=== PATIENT | male | born 1960 | race Caucasian/White ===

== ENCOUNTER → 2016-06-22 | Outpatient (CLI) | payer OTHER ==
--- NOTE | 2016-06-22 12:06 | FL ---
MODIFIED SWALLOW / DEGLUTITION STUDY DATE OF EXAM: 06/22/2016 11:56 AM CLINICAL HISTORY: 56-year-old male Dysphagia. Difficulty swallowing. Exam 1 year ago at the [facility] showed an abnormality with the epiglottis. TECHNIQUE: Deglutition study is performed utilizing thin liquid barium, honey and nectar thick liqui d barium, barium thick applesauce, and barium coated cracker. COMPARISON: None. FINDINGS: The oral and pharyngeal phases show satisfactory initiation and propagation with all modalities teste d. Normal mastication is seen with solid modalities tested. There is no evidence of penetration or aspiration with any modality tested. Incidentally, there appears to be thickening of the epiglottis but with appropriate inversion. Single episode of vallecular residual with solid consistency is noted which clears spontaneously after repeat swallow. IMPRESSION: 1. Thickened appearance to the epiglottis. Recommend ENT consultation for direct visualization. 2. No penetration or aspiration. Single episode of vallecular residual with solid consistencies. 3. Please refer to speech therapist notes for further details if necessary.
== END | disposition home or self-care (01) ==
LOC: RADFLMAIN 11:27
PROVIDERS: ATTEND Family Medicine
DX: J38.7 Other diseases of larynx (principal)
CPT/HCPCS: 74230

== ENCOUNTER 2016-07-21 13:07 | Observation (INO) | payer OTHER ==
[2016-07-21] MEDS ORDERED: ASPIRIN 81 MG CHEW PO STA (13:38)
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
[2016-07-21 14:18] LABS: Basophils # (A) 0.1 k/uL (0-0.2); Basophils % (A) 1 %; CHCM 33.8; Eosinophils # (A) 0.2 k/uL (0-0.7); Eosinophils % (A) 4 %; HCT 37.2 % (39.0-53.0); HDW 3.34; HGB 12.6 gm/dL (13.0-17.5); Luc # (Auto) 0.15; Luc % (Auto) 3; Lymphocytes # (A) 1.4 k/uL (1.0-4.8); Lymphocytes % (A) 25 %; MCH 29.3 pg (25.0-35.0); MCHC 33.9 g/dL (31.0-37.0); MCV 86.2 fL (80.0-100.0); Mean Platelet Volume 6.9; Monocytes # (A) 0.4 k/uL (0-1.0); Monocytes % (A) 8 %; Neutrophils # (A) 3.3 k/uL (1.3-7.7); Neutrophils % (A) 60 %; RBC 4.31 m/uL (4.30-5.90); RDW 15.1 % (11.5-15.5); WBC 5.4 k/uL (3.8-10.6); WBC (Perox) 6.41
[2016-07-21 14:26] LABS: Anion Gap 11 mmol/L; Blood Urea Nitrogen 22 mg/dL (9-20); Calcium 9.8 mg/dL (8.4-10.2); Carbon Dioxide 24 mmol/L (22-30); Chloride 109 mmol/L (98-107); Glucose 151 mg/dL (74-99); Non-African American GFR(MDRD) >60 (>60 ml/min/1.73 sqM); Potassium 4.4 mmol/L (3.5-5.1); Sodium 144 mmol/L (137-145)
[2016-07-21 14:35] LABS: INR 1.1 (<1.1)
[2016-07-21 14:36] LABS: Partial Thromboplastin Time 23.6 sec (22.0-30.0); Prothrombin Time 11.4 sec (9.0-12.0)
[2016-07-21] MEDS ORDERED: NALOXONE 0.4 MG/ML 1 ML VIAL IV PRN (16:08)
[2016-07-21] MEDS ORDERED: MORPHINE SULFATE 4 MG/ML SYRINGE IVP STA (16:10)
[2016-07-21 17:08] LABS: Glucose,Whole Blood 125 mg/dL (75-99)
[2016-07-21 18:02] VITALS: BMI 33.1
[2016-07-21] MEDS ORDERED: INSULIN ASPART 2 UNIT SQ PRN (18:24)
[2016-07-21] MEDS ORDERED: WARFARIN 10 MG TAB PO SCH (18:30)
[2016-07-21] MEDS: DOFETILIDE 500 MCG CAP PO SCH (19:47)
[2016-07-21] MEDS: hydrALAZINE HCL 25 MG TAB PO SCH (19:47)
[2016-07-21] MEDS: PANTOPRAZOLE 40 MG TABLET PO SCH (19:47)
[2016-07-21] MEDS: metFORMIN 500 MG TAB PO SCH (19:47)
[2016-07-21 19:53] LABS: Glucose,Whole Blood 214 mg/dL (75-99)
[2016-07-21] MEDS: INSULIN LISPRO (humaLOG) 300 UNIT/3 ML VIAL SQ SCH (19:54)
--- NOTE | 2016-07-21 20:01 | XR ---
EXAMINATION TYPE: XR chest 1V portable DATE OF EXAM: 07/21/2016 7:28 PM COMPARISON: 01/13/2016 HISTORY: Chest pain TECHNIQUE: Single frontal view of the chest is obtained. FINDINGS: There is no heart failure nor confluent pneumonic infiltrate. There are no hilar masses. C ostophrenic angles are clear. There are chest leads. IMPRESSION: No active cardiopulmonary disease. No change.
[2016-07-21] MEDS ORDERED: GABAPENTIN 100 MG CAP PO SCH (21:00)
[2016-07-21] MEDS ORDERED: METHOCARBAMOL 750 MG TAB PO SCH (21:00)
[2016-07-21] MEDS ORDERED: INSULIN GLARGINE 100 UNIT/ML 10 ML VIAL SQ SCH (21:00)
[2016-07-21] MEDS ORDERED: LATANOPROST 0.005% OPHTH DROPS 2.5 ML BTL BOTH EYES SCH (21:00)
[2016-07-22 01:26] LABS: Creatine Kinase 61 U/L (55-170)
[2016-07-22 01:39] LABS: Creatine Kinase MB 0.8 ng/mL (0.0-2.4); Troponin I <0.012 ng/mL (0.000-0.034)
[2016-07-22] MEDS: DOFETILIDE 500 MCG CAP PO SCH (05:55)
[2016-07-22] MEDS ORDERED: LEVOTHYROXINE 100 MCG TAB PO SCH (06:30)
[2016-07-22 07:12] LABS: Glucose,Whole Blood 178 mg/dL (75-99)
[2016-07-22] MEDS ORDERED: CARVEDILOL 12.5 MG TAB PO SCH (07:30)
[2016-07-22] MEDS ORDERED: glipiZIDE 10 MG TAB PO SCH (07:30)
[2016-07-22 07:58] LABS: Creatine Kinase 55 U/L (55-170)
[2016-07-22 08:09] LABS: Creatine Kinase MB 0.7 ng/mL (0.0-2.4); Troponin I <0.012 ng/mL (0.000-0.034)
[2016-07-22 08:59] VITALS: PULSE 61
[2016-07-22] MEDS ORDERED: DILTIAZEM CD 240 MG CAP.ER.24H PO SCH (09:00)
[2016-07-22] MEDS ORDERED: CLOPIDOGREL 75 MG TAB PO SCH (09:00)
[2016-07-22] MEDS ORDERED: LISINOPRIL 20 MG TAB PO SCH (09:00)
[2016-07-22] MEDS ORDERED: ATORVASTATIN 80 MG TAB PO SCH (09:00)
[2016-07-22] MEDS ORDERED: SPIRONOLACTONE 25 MG TAB PO SCH (09:00)
[2016-07-22] MEDS: PANTOPRAZOLE 40 MG TABLET PO SCH (09:40)
[2016-07-22] MEDS: metFORMIN 500 MG TAB PO SCH (09:41)
[2016-07-22] MEDS: hydrALAZINE HCL 25 MG TAB PO SCH (09:41)
[2016-07-22] MEDS: INSULIN LISPRO (humaLOG) 300 UNIT/3 ML VIAL SQ SCH ×4 (09:44→12:52)
--- NOTE | 2016-07-22 10:53 | CONS ---
DATE OF CONSULTATION: CHIEF COMPLAINT: Chest pain. HISTORY OF PRESENT ILLNESS: This is a 56-year-old gentleman with history of coronary artery disease, status post angioplasty of LAD, right coronary artery and circumflex coronary artery, the most recent one being in April 2015, history of permanent pacemaker placement, paroxysmal atrial fibrillation who presented to the hospital complaining of chest discomfort. Patient states that he moved quite a bit of furniture yesterday and then had vague sharp nonspecific chest discomfort. It was unassociated with diaphoresis. There was no definite radiation to neck, arm or back. There is no history of nausea, vomiting. At the time of my evaluation, he is pain free and hemodynamically stable. EKG shows paced rhythm and 2 sets of cardiac enzymes are negative. Past medical history is significant for coronary artery disease, status post multivessel angioplasty, paroxysmal atrial fibrillation, hypertension, dyslipidemia. Current medications include: 1. Lipitor 80 daily. 2. Coreg 12.5 b.i.d. 3. Plavix. 4. Cardizem CD. 5. Tikosyn. 6. Neurontin. 7. Glucotrol. 8. Apresoline. 9. Insulin. 10. Zestril. 11. Glucophage. 12. Narcan. 13. Aldactone. 14. Coumadin. ALLERGIC TO HYDROCHLOROTHIAZIDE, IMDUR, ADHESIVE TAPE AND SILVADENE. FAMILY HISTORY: Negative for premature coronary artery disease. SOCIAL HISTORY: Negative for smoking, ETOH abuse, or drug abuse. REVIEW OF SYSTEMS: HEENT: Unremarkable. CARDIAC: As described above. RESPIRATORY: Negative. GI: Negative. GENITOURINARY: Negative. Allergy/immunology: Negative. SKIN: Negative. MUSCULOSKELETAL: Negative. ENDOCRINE: Negative. Dermatology: Negative. CONSTITUTIONAL: Negative. Oncological: Negative. The rest of the system review is not relevant. On exam he is comfortable at rest. Vital signs are stable. There is no jugular venous distention. Chest exam reveals good air entry bilaterally. Heart exam reveals first and second heart sounds. No gallop. No murmur, no rub. ABDOMEN: Soft, nontender. Exam of the extremities did not reveal any edema. Peripheral pulses are felt. ASSESSMENT: 1. Chest pain, atypical, probably musculoskeletal. 2. Coronary artery disease, status post multivessel angioplasty. 3. Paroxysmal atrial fibrillation. 4. Hypertension. PLAN: Myocardial infarction is ruled out. Chest discomfort is atypical and probably noncardiac. The patient's INR is 1.1. It is unclear if he is compliant with his Coumadin. We will make sure that he gets 10 mg of Coumadin and optimize anticoagulation as outpatient. From cardiac standpoint, I am going to obtain a 2-D echo on him and hopefully he can be discharged home and outpatient follow-up arranged through my office.
[2016-07-22] MEDS ORDERED: CHOLECALCIFEROL 1,000 UNIT TAB PO SCH (12:00)
[2016-07-22 12:02] LABS: Glucose,Whole Blood 247 mg/dL (75-99)
[2016-07-22 12:33] VITALS: BP 152/71; RESP 18; TEMP 98.5
--- NOTE | 2016-07-22 13:31 | ECHOF ---
Referral Reason:chest pain MEASUREMENTS -------- HEIGHT: 195.6 cm WEIGHT: 126.6 kg BP: 136/75 IVSd: 1.6 cm (0.6 - 1.1) LVIDd: 4.1 cm (3.9 - 5.3) LVPWd: 1.2 cm (0.6 - 1.1) LVIDs: 2.7 cm LA Diam: 4.3 cm (2.7 - 3.8) RVIDd: 3.1 cm (< 3.3) LAESV Index (A-L): 49.01 ml/m Ao Diam: 3.8 cm (2.0 - 3.7) AV Cusp: 2.4 cm (1.5 - 2.6) EPSS: 0.1 cm MV E Krish: 1.19 m/s MV DecT: 237 ms MV A Krish: 0.81 m/s MV E/A Ratio: 1.47 AV maxP.89 mmHg AV meanP.64 mmHg RAP: 5.00 mmHg RVSP: 26.51 mmHg MV EF SLOPE: 111.92 mm/s (70 - 150) MV EXCURSION: 21.17 mm (> 18.000) FINDINGS -------- Sinus rhythm. This was a technically good study. The left ventricular size is normal. There is moderate concentric left ventricular hypertrophy. Overall left ventricular systolic function is normal with, an EF between 60 - 65 %. The right ventricle is normal in size and function. LA is severely dilated >40 ml/m2 The right atrium is normal in size. There is mild aortic valve sclerosis. Mild mitral annular calcification present. Mild mitral regurgitation is present. Mild tricuspid regurgitation present. Right ventricular systolic pressure is normal at < 35 mmHg. The pulmonic valve is normal. There is no pulmonic regurgitation present. The aortic root is dilated measuring 3.8cm. The inferior vena cava is mildly dilated. There is no pericardial effusion. CONCLUSIONS -------- 1. Sinus rhythm. 2. Mild mitral annular calcification present. 3. Mild mitral regurgitation is present. 4. Mild tricuspid regurgitation present. 5. Right ventricular systolic pressure is normal at < 35 mmHg. 6. The pulmonic valve is normal. 7. The aortic root is dilated measuring 3.8cm. 8. The inferior vena cava is mildly dilated. 9. There is no pericardial effusion. 10. This was a technically good study. 11. The left ventricular size is normal. 12. There is moderate concentric left ventricular hypertrophy. 13. Overall left ventricular systolic function is normal with, an EF between 60 - 65 %. 14. The right ventricle is normal in size and function. 15. LA is severely dilated >40 ml/m2 16. The right atrium is normal in size. 17. There is mild aortic valve sclerosis. [employer]ITE: Beatrice Youssef RDCS
[2016-07-22 13:56] LABS: Hemoglobin A1C 7.5 % (4.2-6.1)
--- NOTE | 2016-07-22 16:39 | HP ---
This dictation is both H&P and Discharge Summary. DATE OF ADMISSION: A 56-year-old with known history of coronary artery disease with stents to LAD and circumflex, came in with complaints of chest pressure-like sensation which appears to be nonexertional. Patient has a history of paroxysmal A. fib. Patient's chest pain is nonradiating in the midsternal area, constant, about 7/10 severe, lasted for a few hours, and not associated with diaphoresis. Was complaining of some lightheadedness. Patient denied any nausea. Not sure whether patient has shortness of breath or not. Patient's symptoms completely resolved, patient had an echocardiogram which did not show any wall motion abnormalities in EKG, did not show any significant abnormalities. Patient was cleared for discharge from Cardiology perspective, although etiology of his chest pain is not very clear for me and appears to be noncardiac. Home medications include: 1. Tikosyn that is dofetilide. 2. Methocarbamol. 3. Metformin. 4. Plavix. 5. Insulin aspart. 6. Latanoprost. 7. Coumadin. Patient's INR is only 1.1, in spite of, Coumadin. Not sure whether patient is complaint with his medications or not. 8. Glipizide. 9. Glargine. 10. Gabapentin. 11. Coreg. 12. Levothyroxine. 13. Lisinopril. 14. Hydralazine. 15. Omeprazole. 16. Spironolactone. 17. Diltiazem. 18. Cholecalciferol. 19. Insulin aspart. 20. Silver sulfadiazine. 21. Atorvastatin. 22. Nitroglycerin. ALLERGIES: Allergic to MUSHROOM, HYDROCHLOROTHIAZIDE, ISOSORBIDE MONONITRATE, ADHESIVE TAPE. REVIEW OF SYSTEMS: CONSTITUTIONAL: No fever, no malaise, no fatigue. HEENT: No recent visual problems or hearing problems. Denied any sore throat. CARDIOVASCULAR: As described in HPI. PULMONARY: No shortness of breath, no cough, no hemoptysis. GASTROINTESTINAL: No diarrhea, no nausea, no vomiting, no abdominal pain. Normoactive bowel sounds. NEUROLOGICAL: No headaches, no weakness, no numbness. HEMATOLOGICAL: Denies any bleeding or petechiae. GENITOURINARY: Denies any burning micturition, frequency, or urgency. MUSCULOSKELETAL/RHEUMATOLOGICAL: Denies any joint pain, swelling, or any muscle pain. ENDOCRINE: Denies any polyuria or polydipsia. The rest of the 14 point review of systems is negative. PAST MEDICAL HISTORY: Atrial fibrillation, coronary artery disease, diabetes mellitus, DVT in the past, hyperlipidemia, hypertension, osteoarthritis. Patient uses BiPAP at home, thyroid cancer, thyroidectomy in the past, cardiac catheterization and stent placement in the past, had a permanent pacemaker. Father had severe TIA, diabetes mellitus, mother had severe TIA, diabetes mellitus as well. PHYSICAL EXAM: Temperature 98.4, pulse of 61, respiratory rate of 18, blood pressure 152/70, saturating at 95% on room air. GENERAL: The patient is alert and oriented x3, not in any acute distress. Well developed, well nourished. HEENT: Pupils are round and equally reacting to light. EOMI. No scleral icterus. No conjunctival pallor. Normocephalic, atraumatic. No pharyngeal erythema. No thyromegaly. CARDIOVASCULAR: S1 and S2 present. No murmurs, rubs, or gallops. PULMONARY: Chest is clear to auscultation, no wheezing or crackles. ABDOMEN: Soft, nontender, nondistended, normoactive bowel sounds. No palpable organomegaly. MUSCULOSKELETAL: No joint swelling or deformity. EXTREMITIES: No cyanosis, clubbing, or pedal edema. NEUROLOGICAL: Gross neurological examination did not reveal any focal deficits. SKIN: No rashes. LABORATORY DATA: CBC, CMP essentially within normal limits notes. Hemoglobin A1c is 7.5, and INR as mentioned above. D-dimer is negative. ASSESSMENT AND PLAN: 1. Chest pain; unsure of the exact etiology. Cardiology evaluated the patient, ruled out acute coronary artery syndrome and unstable angina. Patient is cleared for discharge from Cardiology perspective, can be musculoskeletal. 2. Coronary artery disease, status post multivessel angioplasty in the past. 3. Paroxysmal atrial fibrillation. 4. Hypertension. Patient is subtherapeutic on Coumadin, unsure whether patient is compliant with his diet or not. Patient given 10 mg of Coumadin. Dietary counseling was provided and patient needs repeat INR in 3 to 5 days in outpatient clinic. 5. Morbid obesity. Counseling was provided. 6. Type 2 diabetes mellitus. 7. Hypertension. 8. Osteoarthritis. For above mentioned ( ), patient will continue his home medications. Patient will follow with Dr. Thomas Eckert in 3 to 5 days and patient will follow with Dr. Norm Hill in the clinic as scheduled. Activity as tolerated. Cardiac and diabetic 1800 calorie.
[2016-07-22] MEDS ORDERED: WARFARIN 5 MG TAB PO SCH (18:00)
--- NOTE | 2016-07-23 11:20 | XR ---
EXAMINATION TYPE: XR chest 1V portable DATE OF EXAM: 07/21/2016 7:30 PM COMPARISON: 07/21/2016 HISTORY: Pain TECHNIQUE: Single frontal view of the chest is obtained. FINDINGS: There is no focal air space opacity, pleural effusion, or pneumothorax seen. The cardiac silhouette size is within normal limits. The osseous structures are intact. The heart is enlarged a nd there is a cardiac device. Hyperinflation suggests COPD. IMPRESSION: No acute process.
== END 2016-07-22 15:10 | disposition home or self-care (01) ==
LOC: EC 13:07 → 3OBS 16:08
PROVIDERS: ADMIT Internal Medicine; ATTEND Internal Medicine
DX: R07.89 Other chest pain (principal); I10 Essential (primary) hypertension; I48.0 Paroxysmal atrial fibrillation; E11.9 Type 2 diabetes mellitus without complications; E66.01 Morbid (severe) obesity due to excess calories; M19.90 Unspecified osteoarthritis, unspecified site; E78.5 Hyperlipidemia, unspecified; G47.30 Sleep apnea, unspecified; H40.9 Unspecified glaucoma; I25.10 Atherosclerotic heart disease of native coronary artery without angina pectoris; Z79.899 Other long term (current) drug therapy; Z79.84 Long term (current) use of oral hypoglycemic drugs; Z79.4 Long term (current) use of insulin; Z79.02 Long term (current) use of antithrombotics/antiplatelets; Z79.01 Long term (current) use of anticoagulants; Z88.8 Allergy status to other drugs, medicaments and biological substances; Z91.018 Allergy to other foods; Z91.048 Other nonmedicinal substance allergy status; Z86.718 Personal history of other venous thrombosis and embolism; Z99.89 Dependence on other enabling machines and devices; Z85.850 Personal history of malignant neoplasm of thyroid; Z95.0 Presence of cardiac pacemaker; Z95.5 Presence of coronary angioplasty implant and graft; Z68.33 Body mass index [BMI] 33.0-33.9, adult
CPT/HCPCS: 96374; 99285; 36415; 93005; 93306; 85379; 80048; 83036; 82550; 82553; 83735; 84484 ×2; 85025; 85610; 85730; 71010; G0378 ×2; J2270

== ENCOUNTER → 2017-12-26 | Outpatient (CLI) | payer OTHER ==
--- NOTE | 2017-12-26 11:16 | ECHOF ---
Referral Reason:I35.1 nonrheumatic aortic valve sufficency MEASUREMENTS -------- HEIGHT: 188.0 cm WEIGHT: 120.2 kg BP: IVSd: 1.5 cm (0.6 - 1.1) LVIDd: 4.6 cm (3.9 - 5.3) LVPWd: 1.4 cm (0.6 - 1.1) IVSs: 2.1 cm LVIDs: 3.5 cm LVPWs: 1.4 cm LA Diam: 4.4 cm (2.7 - 3.8) LAESV Index (A-L): 49.12 ml/m Ao Diam: 3.7 cm (2.0 - 3.7) AV Cusp: 2.3 cm (1.5 - 2.6) LA Diam: 4.5 cm (2.7 - 3.8) MV EXCURSION: 22.213 mm (> 18.000) MV EF SLOPE: 96 mm/s (70 - 150) EPSS: 0.3 cm MV E Krish: 1.09 m/s MV DecT: 218 ms MV A Krish: 0.68 m/s MV E/A Ratio: 1.59 RAP: 5.00 mmHg RVSP: 23.05 mmHg FINDINGS -------- Sinus rhythm. This was a technically adequate study. The left ventricular size is normal. There is moderate concentric left ventricular hypertrophy. O verall left ventricular systolic function is low-normal with, an EF between 50 - 55 %. The right ventricle is normal in size. The left atrium is moderately dilated. LA is severely dilated >40 ml/m2 The right atrial size is normal. There is mild aortic valve sclerosis. There is no evidence of aortic regurgitation. Mild mitral annular calcification present. Mild mitral regurgitation is present. Mild tricuspid regurgitation present. There is no evidence of pulmonary hypertension. The right v entricular systolic pressure, as measured by Doppler, is 23.05mmHg. There is no pulmonic regurgitation present. The aortic root size is normal. There is no pericardial effusion. CONCLUSIONS -------- 1. The left ventricular size is normal. 2. There is moderate concentric left ventricular hypertrophy. 3. Overall left ventricular systolic function is low-normal with, an EF between 50 - 55 %. 4. The right ventricle is normal in size. 5. The left atrium is moderately dilated. 6. LA is severely dilated >40 ml/m2 7. The right atrial size is normal. 8. There is mild aortic valve sclerosis. 9. Mild mitral annular calcification present. 10. Mild mitral regurgitation is present. 11. Mild tricuspid regurgitation present. 12. There is no evidence of pulmonary hypertension. 13. The right ventricular systolic pressure, as measured by Doppler, is 23.05mmHg. 14. There is no pulmonic regurgitation present. 15. The aortic root size is normal. 16. There is no pericardial effusion. DISPLAY MANAGER: Bibiana Montes De Oca RDCS
== END | disposition home or self-care (01) ==
LOC: RADECHMAIN 08:39
PROVIDERS: ATTEND Internal Medicine Gastroenterology
DX: I08.3 Combined rheumatic disorders of mitral, aortic and tricuspid valves (principal)
CPT/HCPCS: 93306

== ENCOUNTER 2017-12-27 01:49 | Inpatient (IN) | payer MEDICARE, OTHER ==
[2017-12-27] MEDS ORDERED: MORPHINE SULFATE 4 MG/ML SYRINGE ONE ×2 (03:03)
[2017-12-27 06:02] LABS: Creatine Kinase 63 U/L (55-170); Troponin I <0.012 ng/mL (0.000-0.034)
[2017-12-27 06:12] LABS: ALT 39 U/L (21-72); AST 20 U/L (17-59); Albumin 3.8 g/dL (3.5-5.0); Alkaline Phosphatase 84 U/L (38-126); Anion Gap 8 mmol/L; Blood Urea Nitrogen 23 mg/dL (9-20); Carbon Dioxide 22 mmol/L (22-30); Chloride 112 mmol/L (98-107); Glucose 205 mg/dL (74-99); Potassium 4.9 mmol/L (3.5-5.1); Sodium 142 mmol/L (137-145); Total Bilirubin 0.3 mg/dL (0.2-1.3); Total Protein 6.1 g/dL (6.3-8.2)
[2017-12-27 06:17] LABS: Basophils # (A) 0.1 k/uL (0-0.2); Basophils % (A) 1 %; Eosinophils # (A) 0.3 k/uL (0-0.7); Eosinophils % (A) 4 %; HCT 41.6 % (39.0-53.0); HGB 13.7 gm/dL (13.0-17.5); Lymphocytes # (A) 1.3 k/uL (1.0-4.8); Lymphocytes % (A) 18 %; MCH 27.5 pg (25.0-35.0); MCV 83.4 fL (80.0-100.0); Mean Platelet Volume 7.5; Monocytes # (A) 0.5 k/uL (0-1.0); Monocytes % (A) 6 %; Neutrophils % (A) 69 %; Platelet Count 274 k/uL (150-450); RBC 4.99 m/uL (4.30-5.90); WBC 7.3 k/uL (3.8-10.6)
[2017-12-27] MEDS ORDERED: MORPHINE SULFATE 4 MG/ML SYRINGE IV PRN (06:59)
[2017-12-27] MEDS ORDERED: ACETAMINOPHEN TAB 325 MG TAB PO PRN ×2 (07:00→07:01)
[2017-12-27] MEDS ORDERED: ALPRAZolam 0.25 MG TAB PO PRN ×2 (07:01)
[2017-12-27] MEDS ORDERED: ZOLPIDEM 5 MG TAB PO PRN ×3 (07:01→13:34)
[2017-12-27] MEDS ORDERED: NITROGLYCERIN SL TABS 0.4 MG TAB SUBLINGUAL PRN (07:01)
[2017-12-27] MEDS ORDERED: MORPHINE SULFATE 2 MG/ML SYRINGE IVP PRN (07:01)
[2017-12-27] MEDS ORDERED: CARVEDILOL 12.5 MG TAB PO SCH (08:00)
[2017-12-27] MEDS: ATORVASTATIN 80 MG TAB PO SCH (08:48)
[2017-12-27] MEDS: LISINOPRIL 20 MG TAB PO SCH (08:48)
[2017-12-27] MEDS ORDERED: hydrALAZINE HCL 25 MG TAB PO SCH (09:00)
[2017-12-27] MEDS ORDERED: ASPIRIN 325 MG TAB PO SCH (09:00)
[2017-12-27] MEDS ORDERED: LISINOPRIL 20 MG TAB PO SCH (09:00)
[2017-12-27] MEDS: DILTIAZEM CD 240 MG CAP.ER.24H PO SCH (09:32)
[2017-12-27] MEDS ORDERED: HEPARIN SODIUM,PORCINE 5,000 UNIT/ML 1 ML VIAL IV ONE (09:43)
[2017-12-27] MEDS ORDERED: HEPARIN SODIUM,PORCINE 5,000 UNIT/ML 1 ML VIAL IV PRN (09:43)
[2017-12-27] MEDS ORDERED: HEPARIN SOD,PORK IN 0.45% NACL 25,000 UNIT in 0.45% NACL 1 500ML.BAG IV SCH (09:45)
[2017-12-27] MEDS ORDERED: ASPIRIN 325 MG TAB PO STA (10:05)
[2017-12-27] MEDS ORDERED: ATORVASTATIN 80 MG TAB PO STA (10:05)
[2017-12-27] MEDS ORDERED: ALPRAZolam 0.5 MG TAB PO PRN (10:05)
[2017-12-27] MEDS ORDERED: SODIUM CHLORIDE 0.9% 1,000 ML in EMPTY BAG 1 BAG IV ONE (10:05)
[2017-12-27 10:33] LABS: INR 1.1 (<1.2); Partial Thromboplastin Time 26.9 sec (22.0-30.0); Prothrombin Time 10.8 sec (9.0-12.0)
[2017-12-27] MEDS ORDERED: ASPIRIN 81 MG PO SCH (11:15)
--- NOTE | 2017-12-27 11:19 | XR ---
EXAMINATION TYPE: XR chest 1V portable DATE OF EXAM: 12/27/2017 HISTORY: Shortness of breath. COMPARISON: None. TECHNIQUE: Single view of the chest is submitted. FINDINGS: Demonstrated are scattered senescent parenchymal change. There is no evidence for focal infiltrate. The heart is stable. Mild pulmonary venous congestion without overt failure. Hilar and mediastinal structures are within normal limits. Degenerative changes are seen of the dorsal spine. IMPRESSION: 1. Chronic changes without evidence for acute pulmonary disease.
--- NOTE | 2017-12-27 11:44 | CONS ---
CONSULTATION Chester Goldberg is a 57-year-old male patient who follows in the office. He has a history of persistent atrial fibrillation and has had multiple atrial fibrillation ablation at the [facility]. He came to the hospital complaining of #1 Shortness of breath with exertion when he walks his dog and #2 Left pectoral chest discomfort going to her shoulder area recurrent. His 12-lead ECG shows sinus rhythm with nonspecific ST changes. He is on dofetilide, when he started experiencing chest discomfort I repeated his EKG and there were no new ST-segment abnormalities. His first cardiac enzyme was normal, but his second cardiac enzyme came back abnormal and is 0.837. Rest of his labs appear to be in normal limits except for his glucose, which is elevated. He has known diabetes. Hemoglobin is normal. His lipid panel is pending. REVIEW OF SYSTEMS: No fever, chills, rigor or cough or expectoration. No nausea, vomiting, or diarrhea. No hematuria or dysuria. No strokes or seizures or skin lesions or musculoskeletal complaints. PAST MEDICAL HISTORY: Persistent atrial fibrillation, status post multiple ablations at the [facility] years back, currently on dofetilide, history of dyslipidemia, hypertension, type 2 diabetes, and lastly, his stress test was normal in October of 2016. His LV function has been normal. His 2D echo and Doppler study yesterday showed a left ventricular ejection fraction at the lower limits of normal with severely dilated left atrium, mild MR, mild tricuspid regurgitation. MEDICATION: Was reviewed and includes metformin, hydralazine, glipizide, warfarin, spironolactone, omeprazole, lisinopril, insulin, dofetilide, gabapentin, diltiazem, clopidogrel, carvedilol, and atorvastatin 80 mg p.o. daily. ALLERGIES: HYDROCHLOROTHIAZIDE, ISOSORBIDE MONONITRATE, ADHESIVE TAPE, and SILVER SULFADIAZINE. PHYSICAL EXAMINATION: His BMI is elevated. He has a BMI is 33. Head and neck examination is normal. Heart sounds. S1, S2 are normal. No murmurs, no gallops. No rub. Breath sounds are reduced bilaterally with no rhonchi, no crackles. Extremities are warm, no edema. ECG is as above. Cardiac enzymes are as above. IMPRESSION: 1. Recurrent chest discomfort, both with exertion and at rest with an abnormal cardiac enzyme. 2. Persistent atrial fibrillation. His INR today is 1.1 which is subtherapeutic. I called Dr. Dozier and spoke to him about this patient. We will proceed with coronary angiography at this time quickly since his INR is subtherapeutic, is below 2, he has been heparinized. His cardiac medications will continue including carvedilol, aspirin has been given. MMODL / IJN: [id number] /
[2017-12-27] MEDS ORDERED: IV FLUID CONTINUATION 1,000 ML IV ONE (12:30)
[2017-12-27] MEDS ORDERED: fentaNYL (PF) 50 MCG/ML 2 ML AMP IV ONE (12:32)
[2017-12-27] MEDS ORDERED: fentaNYL (PF) 50 MCG/ML 2 ML AMP ONE (12:32)
[2017-12-27] MEDS ORDERED: LIDOCAINE 2% INJ 20 MG/ML SQ ONE (12:35)
[2017-12-27] MEDS ORDERED: BIVALIRUDIN BOLUS 250 MG/50 ML IV ONE (12:55)
[2017-12-27] MEDS ORDERED: BIVALIRUDIN 250 MG in SODIUM CHLORIDE 0.9% 50 ML IV ONE (12:56)
[2017-12-27] MEDS ORDERED: CLOPIDOGREL 75 MG TAB ONE ×2 (12:56→12:58)
[2017-12-27] MEDS ORDERED: IOPAMIDOL-370 125ML BTL INJ ONE (13:00)
[2017-12-27] MEDS ORDERED: CLOPIDOGREL 75 MG TAB PO ONE (13:02)
[2017-12-27] MEDS ORDERED: NITROGLYCERIN 1000MCG/10ML SYRINGE INTRACORON ONE (13:06)
[2017-12-27] MEDS ORDERED: IOPAMIDOL-370 100ML BTL INJ ONE ×2 (13:08→13:18)
[2017-12-27] MEDS ORDERED: RX INFO: IV CONTRAST WAS GIVEN 1 EACH MISC MISCELLANE PRN (13:34)
[2017-12-27] MEDS ORDERED: ATROPINE SULFATE 0.1 MG/ML 10ML SYRINGE IV PRN (13:34)
[2017-12-27] MEDS ORDERED: MAG HYDROX/AL HYDROX/SIMETH 30 ML CUP PO PRN (13:34)
[2017-12-27] MEDS ORDERED: SODIUM CHLORIDE 0.9% 1,000 ML IV SCH (13:45)
--- NOTE | 2017-12-27 13:56 | CC ---
CARDIAC CATHETERIZATION REPORT Mr. Goldberg is a 57-year-old male with known history of paroxysmal atrial fibrillation, prior history of multiple ablation, history of coronary artery disease with stenting of the LAD and the right coronary artery and most recently the left circumflex in 2015 who presented with symptoms of chest discomfort, increasing frequency and intensity with mild elevation of troponin. In view of that and after evaluation by Dr. Ledbetter, recommendation was made regarding cardiac catheterization. The procedure as well as the risks and the complication were discussed with the patient who is in full understanding and agreement. PROCEDURE: Patient was brought to labor commissioner in the fasting semi-sedated state after receiving fentanyl and Benadryl and achieving moderate conscious sedated state. Using Xylocaine anesthesia, in the Seldinger technique a 6-Tongan sheath was introduced in the right femoral artery. Selective right and left coronary angiography performed using 6 -Tongan 4 bend right and left Kendall catheter. Multiple views of the coronary artery including hemiaxial views obtained. 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 Following that angioplasty of the left circumflex was performed. Following that, a 6-Tongan tight pigtail catheter was introduced in the left ventricle and a 30-degree JACQUES view of the left ventricle was obtained. Following that, catheter and sheaths were removed. Hemostasis was obtained with deployment of an Angio-Seal. There was no immediate complication. Patient was returned to his room in stable condition. FINDINGS: LEFT MAIN: This is a nonexistent vessel. LEFT ANTERIOR DESCENDING ARTERY: This is a large-sized vessel reaching toward the apex with a wraparound apex segment. The stented segment in the mid LAD is patent. There is mild intimal disease proximal to the stent of 20%. The rest of the vessel has no high-grade stenosis. It gives rise to 2 diagonal branch of moderate caliber. RIGHT CORONARY ARTERY: This is a large vessel, dominant, giving rise to PDA and a PLV distally. The mid segment of the right coronary artery is stented and is patent. There is mild intimal disease proximally of 20% to 30%. 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 The stented segment in the proximal vessel is patent. Beyond that at the takeoff of the obtuse marginal branch, there is a 70% to 80% stenosis. The rest of the vessel has no high-grade stenosis. LEFT VENTRICULOGRAM: Left ventriculogram was performed in 30-degree JACQUES view and revealed normal left ventricular size and systolic function. Ejection fraction is 60%. There was no significant mitral regurgitation. HEMODYNAMICS: There was no gradient across the aortic valve. The left ventricular end- diastolic pressure was 16 to 20 mmHg. CONCLUSION: 1. Patent stent in the left anterior descending artery and the RCA with mild disease. 2. 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 3. Normal left ventricular size and systolic function. RECOMMENDATION: In view of finding anatomy, I recommend proceeding with angioplasty and stenting of the left circumflex. The procedure as well as the risks and complications were discussed with the patient who is in fully understanding and agreement. MMMILIND / TEMO: [id number] / MTDD
--- NOTE | 2017-12-27 14:05 | PTCA ---
PERCUTANEOUSTRANS CORORONARY ANGIOGRAPHY Mr. 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 The lesion was distal to the prior stent that was placed in 2014. In view of that and in view of his symptoms, recommendation was made regarding coronary angioplasty and stenting. The procedure as well as the risks and the complications were discussed with the patient who is in full understanding and agreement. PROCEDURE: Using the 6-Greenlandic hockey-stick guiding catheter a 0.014 balanced medium weight J-wire was advanced across and positioned in the distal right coronary artery. Subsequently another 0.014 balanced medium weight J-wire was advanced and positioned in the distal left circumflex. Following that, a 2.0 x 12 mm mini Vision stent was advanced, deployed and post dilated at 14 atmospheres. After the last inflation, after appropriate wait, the balloon and the guidewire were withdrawn back in the guiding catheter. Images were obtained and repeated. Those images reveal stable successful stenting. At that point, the guiding catheter, the balloon and the guidewire were removed and left ventriculogram was performed. Following that, catheter and sheaths were removed. Hemostasis was obtained with deployment of an Angio-Seal. There was no immediate complication. Patient was returned to his room in stable condition. Of note, the patient received Angiomax per protocol as well as oral loading dose of clopidogrel. He had no chest discomfort or EKG changes with the inflations. RESULTS: Successful stenting of the mid left circumflex at the takeoff of the obtuse marginal branch with reduction of stenosis from 70% to 0%. RECOMMENDATION: Patient be continued on aspirin, Plavix and statin. At a later time his aspirin will be stopped and he will be continued on the anticoagulation in addition to the Plavix. Those findings and recommendation were discussed with the patient and he is in full understanding and agreement. Duration of procedure is 50 minutes. MMODL / IJN: [id number] / MTDD
[2017-12-27 17:28] LABS: Glucose,Whole Blood 170 mg/dL (75-99)
[2017-12-27] MEDS ORDERED: RIVAROXABAN 20 MG TAB PO SCH (17:30)
[2017-12-27] MEDS: CARVEDILOL 6.25 MG TAB PO SCH (18:18)
[2017-12-27] MEDS: INSULIN ASPART 100 UNIT/ML 1 ML 10 ML VIAL SQ SCH ×2 (18:21→21:56)
[2017-12-27 21:06] LABS: Glucose,Whole Blood 210 mg/dL (75-99)
[2017-12-27] MEDS: NITROGLYCERIN SL TABS 0.4 MG TAB SUBLINGUAL PRN ×3 (21:27→21:42)
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
[2017-12-27 22:26] VITALS: RESP 18
[2017-12-27] MEDS: hydrALAZINE HCL 25 MG TAB PO SCH (22:45)
[2017-12-27] MEDS: DOFETILIDE 500 MCG CAP PO SCH (22:45)
[2017-12-28 05:41] LABS: Glucose,Whole Blood 173 mg/dL (75-99)
[2017-12-28] MEDS: CARVEDILOL 6.25 MG TAB PO SCH ×2 (06:24→16:50)
[2017-12-28] MEDS: INSULIN ASPART 100 UNIT/ML 1 ML 10 ML VIAL SQ SCH ×4 (06:24→22:16)
[2017-12-28 06:46] LABS: Basophils # (A) 0.1 k/uL (0-0.2); Basophils % (A) 1 %; Eosinophils # (A) 0.1 k/uL (0-0.7); Eosinophils % (A) 1 %; HCT 41.5 % (39.0-53.0); HGB 13.5 gm/dL (13.0-17.5); Lymphocytes # (A) 0.9 k/uL (1.0-4.8); Lymphocytes % (A) 8 %; MCHC 32.6 g/dL (31.0-37.0); MCV 82.8 fL (80.0-100.0); Monocytes # (A) 0.7 k/uL (0-1.0); Monocytes % (A) 6 %; Neutrophils # (A) 9.6 k/uL (1.3-7.7); Neutrophils % (A) 84 %; Platelet Count 262 k/uL (150-450); RBC 5.01 m/uL (4.30-5.90); RDW 14.8 % (11.5-15.5); WBC 11.4 k/uL (3.8-10.6)
[2017-12-28 07:03] LABS: Anion Gap 7 mmol/L; Blood Urea Nitrogen 14 mg/dL (9-20); Calcium 9.4 mg/dL (8.4-10.2); Carbon Dioxide 23 mmol/L (22-30); Chloride 109 mmol/L (98-107); Cholesterol 102 mg/dL (<200); Glucose 150 mg/dL (74-99); HDL Cholesterol 29 mg/dL (40-60); LDL Cholesterol,Calculated 54 mg/dL (0-99); Potassium 4.5 mmol/L (3.5-5.1); Sodium 139 mmol/L (137-145); Triglycerides 97 mg/dL (<150)
[2017-12-28] MEDS: LISINOPRIL 20 MG TAB PO SCH (08:29)
[2017-12-28] MEDS: ASPIRIN 81 MG PO SCH (08:29)
[2017-12-28] MEDS: DOFETILIDE 500 MCG CAP PO SCH ×2 (08:29→22:15)
[2017-12-28] MEDS: DILTIAZEM CD 240 MG CAP.ER.24H PO SCH (08:30)
[2017-12-28] MEDS: ATORVASTATIN 80 MG TAB PO SCH (08:30)
[2017-12-28] MEDS: hydrALAZINE HCL 25 MG TAB PO SCH ×2 (08:30→22:16)
[2017-12-28] MEDS: FAMOTIDINE 20 MG/2 ML VIAL IV SCH ×2 (08:32→22:15)
[2017-12-28 09:55] VITALS: BMI 30.7
[2017-12-28 11:16] LABS: Glucose,Whole Blood 224 mg/dL (75-99)
[2017-12-28 11:29] LABS: Hemoglobin A1C 7.7 % (4.0-6.0)
[2017-12-28] MEDS: CLOPIDOGREL 75 MG TAB PO SCH (11:48)
--- NOTE | 2017-12-28 11:52 | P.PN ---
Subjective Progress Note Date: 12/28/17 This is a pleasant 57-year-old gentleman with known history of coronary artery disease and prior PCI who presented to the hospital with a non- ST elevation myocardial infarction he was taken to the cardiac catheterization lab and underwent angioplasty with stents placement of the circumflex. Patient did have an episode of chest discomfort through the night last night, it was noted at that time that he was also in atrial fibrillation and tachycardic. This morning he is chest pain-free. EKG shows a paced rhythm with underlying atrial fibrillation. Hemodynamically he is stable, we'll increase his dose of Coreg to his home dose at 12-1/2 mg one tablet by mouth twice a day. 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 Objective - Vital Signs Vital signs: Vital Signs Temp 97.6 F 12/28/17 08:00 Pulse 122 H 12/28/17 08:00 Resp 18 12/28/17 08:00 BP 164/92 12/28/17 08:00 Pulse Ox 91 L 12/28/17 08:00 Intake & Output 12/27/17 12/28/17 12/28/17 18:59 06:59 18:59 Intake Total 236.29 240 Output Total 990 1450 Balance -753.71 -1450 240 Weight 126 kg 117.5 kg 117.5 kg Intake: IV 236.29 Oral 240 Output: Urine 990 1450 Other: Voiding Method Urinal # Bowel Movements 1 - Exam PHYSICAL EXAMINATION: GENERAL: 57-year-old gentleman in no acute distress at the time of my examination HEENT: Head is atraumatic, normocephalic. Pupils equal, round. Sclera anicteric. Conjunctiva are clear. Mucous membranes of the mouth are moist. Neck is supple. There is no elevated jugular venous pressure.] bruit is heard. HEART EXAMINATION: Heart S1, S2 irregularly irregular . No murmur or gallop heard. CHEST EXAMINATION: Lungs are clear to auscultation and precussion. No chest wall tenderness is noted on palpation or with deep breathing. ABDOMEN: Soft, obese, nontender. Bowel sounds are heard. No organomegaly noted. Right groin is soft, no evidence of any hematoma EXTREMITIES: 2+ peripheral pulses with no evidence of peripheral edema and no calf tenderness noted. NEUROLOGIC patient is awake, alert and oriented ?-3. . - Labs CBC & Chem 7: 12/28/17 06:12 12/28/17 06:12 Labs: Abnormal Lab Results - Last 24 Hours (Table) 12/27/17 12/27/17 12/27/17 Range/Units 15:20 17:13 21:03 WBC (3.8-10.6) k/uL Neutrophils # (1.3-7.7) k/uL Lymphocytes # (1.0-4.8) k/uL Chloride (98-107) mmol/L Creatinine (0.66-1.25) mg/dL Glucose (74-99) mg/dL POC Glucose (mg/dL) 170 H 210 H (75-99) mg/dL Troponin I 2.120 H* (0.000-0.034) ng/mL HDL Cholesterol (40-60) mg/dL 12/28/17 12/28/17 12/28/17 Range/Units 05:39 06:12 06:12 WBC 11.4 H (3.8-10.6) k/uL Neutrophils # 9.6 H (1.3-7.7) k/uL Lymphocytes # 0.9 L (1.0-4.8) k/uL Chloride 109 H (98-107) mmol/L Creatinine 0.63 L (0.66-1.25) mg/dL Glucose 150 H (74-99) mg/dL POC Glucose (mg/dL) 173 H (75-99) mg/dL Troponin I (0.000-0.034) ng/mL HDL Cholesterol 29 L (40-60) mg/dL 12/28/17 Range/Units 11:14 WBC (3.8-10.6) k/uL Neutrophils # (1.3-7.7) k/uL Lymphocytes # (1.0-4.8) k/uL Chloride (98-107) mmol/L Creatinine (0.66-1.25) mg/dL Glucose (74-99) mg/dL POC Glucose (mg/dL) 224 H (75-99) mg/dL Troponin I (0.000-0.034) ng/mL HDL Cholesterol (40-60) mg/dL Assessment and Plan Plan: Assessment and plan 1 non-ST elevation myocardial infarction, status post angioplasty and stenting of the circumflex #2 known history of coronary artery disease with prior PCI #3 hyperlipidemia #4 prior ablations #5 paroxysmal atrial fibrillation #6 hypothyroidism #7 diabetes Plan Patient will be discharged home on his Xarelto 15 mg daily along with Plavix 75 mg daily, and a baby aspirin, baby aspirin will be continued for approximately one month and then discontinued. He will also go home on 80 mg of Lipitor daily , Coreg 12-1/2 mg one tablet by mouth twice a day, Cardizem CD 240 mg daily, Tikosyn 500 g twice a day, sublingual nitroglycerin as needed for chest pain. DNP note has been reviewed, I agree with a documented findings and plan of care. Patient was seen and examined.
[2017-12-28 16:11] LABS: Glucose,Whole Blood 230 mg/dL (75-99)
--- NOTE | 2017-12-28 17:14 | P.PN ---
Subjective this is a pleasant 57 yo M with pmh of chronic atrial fibrillation s/p pacemaker , CHF, CAD, DM, DVT, Hypertension , Hyerlipidemia , osteoarthritis , sleep apnea , hypothyroidism, thyroid cancer who presents with chest pain of one day duration ,left sided radiating to the left shoulder about 10/10 in severity , associated with dyspnea. on admission he has elevated troponin at < 0.012, 0.837 and then 2.120, no significant EKG st-t changes, pt underwent cardiac catheterization who under stenting of his circumflex art. when i came to see the pt he was in the PACU waking up , he looks calm and not in distress and vitals stable 12/28/2017 Patient developed some chest pain overnight, he is in A. fib but heart rate is a bit on the high side. Coreg dose has been increased G cleared by cardiology team for discharge. Recommended to follow-up with the [place] surgical brace maker. Patient states he sees Dr. Handy in on [facility] and he told me he will be able to make appointment on Saturday to see him this coming week. Follow-up with Dr. Gavin Harris from [place] PCP, instructed to follow up with him in 1 week too. Patient is mobile without difficulties,. On reviewing the medication, the constellation son the patient's or discharge he states that he cannot afford Plavix and there is no [place] pharmacy open taken take his prescription, as per patient takes Similac one week and a half to get the prescription for the Plavix. Objective - Vital Signs Vital signs: Vital Signs Temp 97.8 F 12/28/17 12:00 Pulse 97 12/28/17 12:00 Resp 18 12/28/17 12:00 BP 147/79 12/28/17 12:00 Pulse Ox 93 L 12/28/17 12:00 Intake & Output 12/27/17 12/28/17 12/28/17 18:59 06:59 18:59 Intake Total 236.29 462 Output Total 990 1450 500 Balance -753.71 -1450 -38 Weight 126 kg 117.5 kg 117.5 kg Intake: IV 236.29 Oral 462 Output: Urine 990 1450 500 Other: Voiding Method Urinal # Bowel Movements 1 - Exam GENERAL: The patient is alert and oriented x3, not in any acute distress. Well developed, well nourished. HEENT: Pupils are round and equally reacting to light. EOMI. No scleral icterus. No conjunctival pallor. Normocephalic, atraumatic. No pharyngeal erythema. No thyromegaly. CARDIOVASCULAR: S1 and S2 present. No murmurs, rubs, or gallops. PULMONARY: Chest is clear to auscultation, no wheezing or crackles. ABDOMEN: Soft, nontender, nondistended, normoactive bowel sounds. No palpable organomegaly. MUSCULOSKELETAL: No joint swelling or deformity. EXTREMITIES: No cyanosis, clubbing, or pedal edema. NEUROLOGICAL: Gross neurological examination did not reveal any focal deficits. SKIN: No rashes. - Labs CBC & Chem 7: 12/28/17 06:12 12/28/17 06:12 Labs: Abnormal Lab Results - Last 24 Hours (Table) 12/27/17 12/27/17 12/28/17 Range/Units 17:13 21:03 05:39 WBC (3.8-10.6) k/uL Neutrophils # (1.3-7.7) k/uL Lymphocytes # (1.0-4.8) k/uL Chloride (98-107) mmol/L Creatinine (0.66-1.25) mg/dL Glucose (74-99) mg/dL POC Glucose (mg/dL) 170 H 210 H 173 H (75-99) mg/dL HDL Cholesterol (40-60) mg/dL 12/28/17 12/28/17 12/28/17 Range/Units 06:12 06:12 11:14 WBC 11.4 H (3.8-10.6) k/uL Neutrophils # 9.6 H (1.3-7.7) k/uL Lymphocytes # 0.9 L (1.0-4.8) k/uL Chloride 109 H (98-107) mmol/L Creatinine 0.63 L (0.66-1.25) mg/dL Glucose 150 H (74-99) mg/dL POC Glucose (mg/dL) 224 H (75-99) mg/dL HDL Cholesterol 29 L (40-60) mg/dL 12/28/17 Range/Units 16:08 WBC (3.8-10.6) k/uL Neutrophils # (1.3-7.7) k/uL Lymphocytes # (1.0-4.8) k/uL Chloride (98-107) mmol/L Creatinine (0.66-1.25) mg/dL Glucose (74-99) mg/dL POC Glucose (mg/dL) 230 H (75-99) mg/dL HDL Cholesterol (40-60) mg/dL Assessment and Plan Assessment: chest pain of cardiac origin NSTEMI s/p Cardiac cath and stent placement on 12/27/2017 chronic atrial fibrillation CHF Diabetes Mellitus Hypertension Hyperlipidemia Plan: this is a pleasant 57 yo M who presents with chest pain who underwent cardiac cath showing stenosing coronary art, s/p stenting by cardiology team . continue with same treatment, continue with symptomatic treatment. resume home mediation . c/w antihypertensive medication. pt is on aspirin and plavix . Patient he cannot gets prescription for Plavix for more than one week when he discharged. insulin for his DM. c/w pain management. c/w GI and DVT prophylaxis, further recommendation as per his clinical course progosis remains guarded
[2017-12-28] MEDS ORDERED: RIVAROXABAN 15 MG TAB PO SCH (17:30)
[2017-12-28 20:37] LABS: Glucose,Whole Blood 241 mg/dL (75-99)
[2017-12-29 06:09] LABS: Glucose,Whole Blood 166 mg/dL (75-99)
[2017-12-29] MEDS: CARVEDILOL 6.25 MG TAB PO SCH (07:00)
[2017-12-29] MEDS: INSULIN ASPART 100 UNIT/ML 1 ML 10 ML VIAL SQ SCH ×2 (07:00→12:46)
[2017-12-29 07:01] LABS: Basophils # (A) 0.1 k/uL (0-0.2); Basophils % (A) 1 %; Eosinophils # (A) 0.2 k/uL (0-0.7); Eosinophils % (A) 2 %; HCT 40.4 % (39.0-53.0); Lymphocytes # (A) 1.3 k/uL (1.0-4.8); Lymphocytes % (A) 15 %; MCH 26.4 pg (25.0-35.0); MCHC 32.2 g/dL (31.0-37.0); Mean Platelet Volume 7.3; Monocytes % (A) 12 %; Neutrophils # (A) 5.9 k/uL (1.3-7.7); Neutrophils % (A) 69 %; Platelet Count 248 k/uL (150-450); RBC 4.92 m/uL (4.30-5.90); RDW 14.8 % (11.5-15.5); WBC 8.5 k/uL (3.8-10.6)
[2017-12-29] MEDS: CLOPIDOGREL 75 MG TAB PO SCH (08:01)
[2017-12-29] MEDS: ATORVASTATIN 80 MG TAB PO SCH (08:01)
[2017-12-29] MEDS: ASPIRIN 81 MG PO SCH (08:01)
[2017-12-29] MEDS: DILTIAZEM CD 240 MG CAP.ER.24H PO SCH (08:01)
[2017-12-29] MEDS: hydrALAZINE HCL 25 MG TAB PO SCH (08:02)
[2017-12-29] MEDS: LISINOPRIL 20 MG TAB PO SCH (08:02)
[2017-12-29] MEDS: FAMOTIDINE 20 MG/2 ML VIAL IV SCH (08:02)
[2017-12-29] MEDS: DOFETILIDE 500 MCG CAP PO SCH (08:02)
[2017-12-29 11:32] LABS: Glucose,Whole Blood 250 mg/dL (75-99)
[2017-12-29 12:32] VITALS: BP 132/76; PULSE 62; TEMP 97.8
--- NOTE | 2017-12-29 13:40 | PN ---
PROGRESS NOTE Mr. Goldberg is a 57-year-old male who presented with symptoms of chest discomfort. He has a known history of coronary disease and history of paroxysmal atrial fibrillation. He is feeling well this morning, ambulating without difficulty. Denying any chest pain, no dizziness or palpitation. Denies any nausea. He continued be on aspirin 81 mg daily, Lipitor 80 mg daily, Coreg 6.5 mg twice a day, Plavix 75 mg daily, diltiazem CD 240 mg daily, dofetilide 5 mg twice a day, hydralazine 25 mg twice a day, lisinopril 40 mg daily, Xarelto 15 mg daily. PHYSICAL EXAMINATION: Blood pressure 132/70 with a heart in the 80s. LUNGS: Clear. HEART: S1, S2 with systolic murmur. Irregular regular. ABDOMEN: Soft, nontender. EXTREMITIES: No edema. LAB DATA: Lab data revealed a hemoglobin of 13, white blood cell of 8.5. IMPRESSION: 1. Coronary artery disease status post stenting of the left circumflex. 2. Atrial fibrillation, paroxysmal. 3. Hypertension. 4. Hyperlipidemia. RECOMMENDATION: The patient should be able to be discharged home today and followed as an outpatient with his kiln packer at the [facility]. MMODL / YUNIELN: [id number] /
--- NOTE | 2017-12-29 15:36 | P.DS ---
Providers Date of admission: 12/28/17 08:26 Attending physician: Fabricio Becker Consults: 12/27/17 06:54 Consult Physician Routine Consulting Provider: Sharon Gutierrez Consult Reason/Comments: chest pain Do you want consulting provider notified?: Yes, Notify in am 12/27/17 13:34 Consult Physician Routine Consulting Provider: Sharon Gutierrez Consult Reason/Comments: Post Interventional patient Do you want consulting provider notified?: Already Contacted Primary care physician: Bill Harris MD Hospital Course: this is a pleasant 57 yo M with pmh of chronic atrial fibrillation s/p pacemaker , CHF, CAD, DM, DVT, Hypertension , Hyerlipidemia , osteoarthritis , sleep apnea , hypothyroidism, thyroid cancer who presents with chest pain of one day duration ,left sided radiating to the left shoulder about 10/10 in severity , associated with dyspnea. on admission he has elevated troponin at < 0.012, 0.837 and then 2.120, no significant EKG st-t changes, pt underwent cardiac catheterization who underwent stenting of his circumflex art. A. fib but heart rate is a bit on the high side. Coreg dose has been increased G cleared by cardiology team for discharge. Recommended to follow-up with the [place] barrel painter. Patient states he sees Dr. Handy in on [facility] and he told me he will be able to make appointment on Saturday to see him this coming week. Follow-up with Dr. Gavin Harris from [place] PCP, instructed to follow up with him in 1 week too. Patient is mobile without difficulties, on reviewing the medication, he states that he cannot afford Plavix and there is no [place] pharmacy open to take his prescription. The staff will provide the patient with a number for the trimming caser to call tomorrow to the hospital to pick and shovel man his Plavix provided by the hospital for free until he sees his barrel painter and [place] pharmacist area at the patient and verbalized understanding of these instructions and would follow it up. Patient and both understand the patient should always be on aspirin, Plavix and xarelto to all the time, risks of none) including heart attack, cardiac arrhythmia, and/or . And both they verbalized understanding and will follow up instructions. he looks calm and not in distress and vitals stable. Patient was cleared by cardiology for discharge. Problems and management plan were discussed in details with the patient and at bedside. Patient was found stable and can be discharged home however he needs follow-up as an outpatient and he said he always do follow -ups and he is going to do that this coming week GENERAL: The patient is alert and oriented x3, not in any acute distress. Well developed, well nourished. HEENT: Pupils are round and equally reacting to light. EOMI. No scleral icterus. No conjunctival pallor. Normocephalic, atraumatic. No pharyngeal erythema. No thyromegaly. CARDIOVASCULAR: S1 and S2 present. No murmurs, rubs, or gallops. PULMONARY: Chest is clear to auscultation, no wheezing or crackles. ABDOMEN: Soft, nontender, nondistended, normoactive bowel sounds. No palpable organomegaly. MUSCULOSKELETAL: No joint swelling or deformity. EXTREMITIES: No cyanosis, clubbing, or pedal edema. NEUROLOGICAL: Gross neurological examination did not reveal any focal deficits. SKIN: No rashes. I spent more than 35 minutes Patient Condition at Discharge: Good Plan - Discharge Summary Discharge Rx Participant: No New Discharge Prescriptions: No Action Methocarbamol [Robaxin] 750 mg PO HS metFORMIN HCL 1,000 mg PO BID Dofetilide [Tikosyn] 500 mcg PO BID glipiZIDE [Glucotrol] 10 mg PO BID Insulin Glargine,Hum.rec.anlog [Lantus Solostar] 5 unit SQ HS Gabapentin [Neurontin] 300 mg PO HS Nitroglycerin Sl Tabs [Nitrostat] 0.4 mg SUBLINGUAL Q5M PRN #25 tab PRN Reason: Chest Pain Carvedilol [Coreg] 12.5 mg PO BID hydrALAZINE HCL [Apresoline] 25 mg PO BID Omeprazole 20 mg PO BID Diltiazem HCl [Diltiazem ER] 240 mg PO DAILY Empagliflozin [Jardiance] 10 mg PO DAILY Atorvastatin [Lipitor] 80 mg PO HS Lidocaine 5% Patch [Lidoderm] 1 patch TOPICAL DAILY PRN PRN Reason: Pain Lisinopril 40 mg PO DAILY Fluticasone Nasal [place] [Flonase Nasal [place]] 2 spr EA NOSTRIL BID Levothyroxine Sodium [Synthroid] 200 mcg PO DAILY Saxagliptin HCl [Onglyza] 5 mg PO DAILY Urea 20% Cream 1 applic TOPICAL DAILY PRN PRN Reason: Dry Skin Rivaroxaban [Xarelto] 20 mg PO HS Cyanocobalamin (Vitamin B-12) [Vitamin B-12] 1,000 mcg PO DAILY Discharge Medication List Dofetilide [Tikosyn] 500 mcg PO BID 10/08/14 [History] Methocarbamol [Robaxin] 750 mg PO HS 10/08/14 [History] metFORMIN HCL 1,000 mg PO BID 10/08/14 [History] glipiZIDE [Glucotrol] 10 mg PO BID 04/05/15 [History] Insulin Glargine,Hum.rec.anlog [Lantus Solostar] 5 unit SQ HS 04/06/15 [History] Gabapentin [Neurontin] 300 mg PO HS 04/28/15 [History] Nitroglycerin Sl Tabs [Nitrostat] 0.4 mg SUBLINGUAL Q5M PRN #25 tab 05/06/15 [Rx ] hydrALAZINE HCL [Apresoline] 25 mg PO BID 09/05/15 [History] Omeprazole 20 mg PO BID 10/07/15 [History] Diltiazem HCl [Diltiazem 24Hr ER] 240 mg PO DAILY 04/10/16 [History] Atorvastatin [Lipitor] 80 mg PO HS 12/27/17 [History] Cyanocobalamin (Vitamin B-12) [Vitamin B-12] 1,000 mcg PO DAILY 12/27/17 [ History] Empagliflozin [Jardiance] 10 mg PO DAILY 12/27/17 [History] Fluticasone Nasal [place] [Flonase Nasal [place]] 2 spr EA NOSTRIL BID 12/27/17 [ History] Levothyroxine Sodium [Synthroid] 200 mcg PO DAILY 12/27/17 [History] Lidocaine 5% Patch [Lidoderm 5% Patch] 1 patch TOPICAL DAILY PRN 12/27/17 [ History] Lisinopril 40 mg PO DAILY 12/27/17 [History] Rivaroxaban [Xarelto] 20 mg PO HS 12/27/17 [History] Saxagliptin HCl [Onglyza] 5 mg PO DAILY 12/27/17 [History] Urea 20% Cream 1 applic TOPICAL DAILY PRN 12/27/17 [History] Aspirin 81 mg PO DAILY #30 chew 12/29/17 [Rx] Carvedilol [Coreg] 6.25 mg PO BID-W/MEALS #30 tab 12/29/17 [Rx] Clopidogrel [Plavix] 75 mg PO DAILY #30 tab 12/29/17 [Rx] Rivaroxaban [Xarelto] 15 mg PO W/SUPPER tab 12/29/17 [Rx] hydrALAZINE HCL [Apresoline] 25 mg PO BID #60 tab 12/29/17 [Rx] Follow up Appointment(s)/Referral(s): Bill Harris MD [Primary Care Provider] - 1 Week
== END 2017-12-29 16:22 | disposition home or self-care (01) | DRG 249 ==
LOC: EC 01:49 → 3OBS 04:50 → 6SEL 16:26 → OBSVTOIN 12-28 08:26
PROVIDERS: ADMIT Hospitalist; ATTEND Hospitalist
PROC: B211YZZ Fluoroscopy of Multiple Coronary Arteries using Other Contrast (ICD-10-PCS; 2017-12-27)
PROC: B215YZZ Fluoroscopy of Left Heart using Other Contrast (ICD-10-PCS; 2017-12-27)
PROC: 02703DZ Dilation of Coronary Artery, One Artery with Intraluminal Device, Percutaneous Approach (ICD-10-PCS; principal; 2017-12-27 10:20)
PROC: 4A023N7 Measurement of Cardiac Sampling and Pressure, Left Heart, Percutaneous Approach (ICD-10-PCS; 2017-12-27 10:20)
DX: I21.4 Non-ST elevation (NSTEMI) myocardial infarction (principal); I11.0 Hypertensive heart disease with heart failure; I07.1 Rheumatic tricuspid insufficiency; E11.9 Type 2 diabetes mellitus without complications; I48.2 Chronic atrial fibrillation; I25.10 Atherosclerotic heart disease of native coronary artery without angina pectoris; E78.5 Hyperlipidemia, unspecified; M19.91 Primary osteoarthritis, unspecified site; G47.30 Sleep apnea, unspecified; E89.0 Postprocedural hypothyroidism; H40.9 Unspecified glaucoma; K57.90 Diverticulosis of intestine, part unspecified, without perforation or abscess without bleeding; H26.9 Unspecified cataract; Z79.01 Long term (current) use of anticoagulants; Z79.4 Long term (current) use of insulin; Z79.51 Long term (current) use of inhaled steroids; Z79.899 Other long term (current) drug therapy; Z85.850 Personal history of malignant neoplasm of thyroid; Z95.0 Presence of cardiac pacemaker; Z86.718 Personal history of other venous thrombosis and embolism; Z95.5 Presence of coronary angioplasty implant and graft; Z87.81 Personal history of (healed) traumatic fracture; Z91.018 Allergy to other foods; Z91.048 Other nonmedicinal substance allergy status; Z83.3 Family history of diabetes mellitus; Z82.49 Family history of ischemic heart disease and other diseases of the circulatory system; Z80.3 Family history of malignant neoplasm of breast; Z82.3 Family history of stroke; Z88.8 Allergy status to other drugs, medicaments and biological substances
CPT/HCPCS: 36415; 71045; 80048; 80053; 80061; 82550; 82553; 83036; 84484; 85025; 85379; 85610; 85730; 92920; 93458; 96374; 96376; 99285

== ENCOUNTER 2018-05-14 16:58 | Observation (INO) | payer MEDICARE, OTHER ==
[2018-05-14] MEDS ORDERED: NITROGLYCERIN SL TABS 0.4 MG TAB SUBLINGUAL STA ×3 (17:08)
[2018-05-14] MEDS ORDERED: ASPIRIN 81 MG PO STA (17:08)
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
[2018-05-14 17:36] LABS: Anisocytosis Slight; Basophils # (A) 0.1 k/uL (0-0.2); Basophils % (A) 1 %; Eosinophils # (A) 0.3 k/uL (0-0.7); Eosinophils % (A) 4 %; HCT 41.5 % (39.0-53.0); HGB 13.5 gm/dL (13.0-17.5); Lymphocytes # (A) 1.4 k/uL (1.0-4.8); Lymphocytes % (A) 23 %; MCH 28.1 pg (25.0-35.0); MCHC 32.5 g/dL (31.0-37.0); MCV 86.3 fL (80.0-100.0); Mean Platelet Volume 7.2; Monocytes # (A) 0.5 k/uL (0-1.0); Monocytes % (A) 7 %; Neutrophils # (A) 3.9 k/uL (1.3-7.7); Neutrophils % (A) 62 %; Platelet Count 274 k/uL (150-450); RBC 4.81 m/uL (4.30-5.90); RDW 16.6 % (11.5-15.5); WBC 6.3 k/uL (3.8-10.6)
[2018-05-14 17:47] LABS: Partial Thromboplastin Time 26.6 sec (22.0-30.0); Prothrombin Time 10.2 sec (9.0-12.0)
[2018-05-14 17:53] LABS: ALT 31 U/L (21-72); AST 22 U/L (17-59); Albumin 3.7 g/dL (3.5-5.0); Alkaline Phosphatase 77 U/L (38-126); Anion Gap 10 mmol/L; Blood Urea Nitrogen 22 mg/dL (9-20); Calcium 10.1 mg/dL (8.4-10.2); Carbon Dioxide 22 mmol/L (22-30); Chloride 111 mmol/L (98-107); Creatine Kinase 132 U/L (55-170); Glucose 172 mg/dL (74-99); Potassium 4.6 mmol/L (3.5-5.1); Sodium 143 mmol/L (137-145); Total Bilirubin 0.5 mg/dL (0.2-1.3); Total Protein 6.6 g/dL (6.3-8.2)
[2018-05-14 18:05] LABS: Troponin I <0.012 ng/mL (0.000-0.034)
[2018-05-14] MEDS ORDERED: NITROGLYCERIN SL TABS 0.4 MG TAB SUBLINGUAL PRN (18:14)
[2018-05-14] MEDS ORDERED: MORPHINE SULFATE 2 MG/ML SYRINGE IVP STA (18:16)
[2018-05-14 18:29] VITALS: RESP 18
--- NOTE | 2018-05-14 19:44 | XR ---
EXAMINATION TYPE: XR chest 2V DATE OF EXAM: 05/14/2018 COMPARISON: 12/27/2017 HISTORY: Chest discomfort TECHNIQUE: Frontal and lateral views of the chest are obtained. FINDINGS: There is no heart failure nor confluent pneumonic infiltrate. Costophrenic angles are kala r. There is left axillary pacemaker with the lead tips in the right ventricle. There is no pleural ef fusion. IMPRESSION: No active cardiopulmonary disease. No change.
[2018-05-14 20:36] LABS: Glucose,Whole Blood 129 mg/dL (75-99)
[2018-05-14] MEDS ORDERED: GABAPENTIN 300 MG CAP PO SCH (21:00)
[2018-05-14] MEDS ORDERED: FLUTICASONE 50MCG/SPRAY NASAL 16GM EA NOSTRIL SCH (21:00)
[2018-05-14] MEDS ORDERED: INSULIN DETEMIR 100 UNIT/ML 10 ML VIAL SQ SCH (21:00)
[2018-05-14] MEDS ORDERED: CHOLECALCIFEROL 1,000 UNIT TAB PO SCH (21:00)
[2018-05-14] MEDS ORDERED: RIVAROXABAN 20 MG TAB PO SCH (21:00)
[2018-05-14] MEDS ORDERED: METHOCARBAMOL 500 MG TAB PO SCH (21:00)
[2018-05-14] MEDS ORDERED: ATORVASTATIN 80 MG TAB PO SCH (21:00)
[2018-05-14] MEDS: CARVEDILOL 6.25 MG TAB PO SCH (21:10)
[2018-05-14] MEDS: hydrALAZINE HCL 25 MG TAB PO SCH (21:10)
[2018-05-14] MEDS: metFORMIN 500 MG TAB PO SCH (21:10)
[2018-05-14] MEDS: PANTOPRAZOLE 40 MG TABLET PO SCH (21:10)
[2018-05-14] MEDS: DOFETILIDE 500 MCG CAP PO SCH (21:11)
[2018-05-14] MEDS: glipiZIDE 10 MG TAB PO SCH (21:11)
[2018-05-14] MEDS: NITROGLYCERIN OINT 1 INCH/GM PACKET TOPICAL SCH (21:30)
[2018-05-15 01:04] LABS: Creatine Kinase 87 U/L (55-170)
[2018-05-15 01:17] LABS: Creatine Kinase MB 1.4 ng/mL (0.0-2.4); Troponin I <0.012 ng/mL (0.000-0.034)
[2018-05-15] MEDS: NITROGLYCERIN OINT 1 INCH/GM PACKET TOPICAL SCH (05:43)
[2018-05-15 06:10] LABS: Cholesterol 139 mg/dL (<200); HDL Cholesterol 23 mg/dL (40-60); LDL Cholesterol,Calculated 75 mg/dL (0-99); Triglycerides 203 mg/dL (<150)
[2018-05-15 06:17] LABS: Creatine Kinase 74 U/L (55-170)
[2018-05-15] MEDS ORDERED: LEVOTHYROXINE 100 MCG TAB PO SCH (06:30)
[2018-05-15 06:42] LABS: Glucose,Whole Blood 127 mg/dL (75-99)
[2018-05-15 06:46] LABS: Creatine Kinase MB 1.3 ng/mL (0.0-2.4); Troponin I <0.012 ng/mL (0.000-0.034)
[2018-05-15] MEDS ORDERED: REGADENOSON 0.4 MG/5 ML SYRINGE IV ONE (07:07)
[2018-05-15] MEDS ORDERED: CAFFEINE CITRATE 60 MG/3 ML VIAL IV PRN (07:07)
--- NOTE | 2018-05-15 07:41 | CONS ---
CONSULTATION Mr. Goldberg is a 58-year-old male who presented with symptoms of chest discomfort. He was lifting heavy boxes recently and subsequently had an episode of chest heaviness that lasted almost all day long yesterday with some dyspnea. He is pain free at this time. He was admitted to the hospital in December of this year with episode of chest discomfort, has a history of paroxysmal atrial fibrillation and prior ablation. 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 Patient's chest discomfort at this time is different from the discomfort he had last time. According to him, this is a different feeling. Since his last visit, he has done well. His breathing has been stable. His activity level has been stable. He has been followed on a regular basis at [facility] and had an adjustment of his pacemaker recently. He has some peripheral edema. He has chronic peripheral vessel disease and an ulceration on the right lower extremity. He has no PND, no orthopnea, no dizziness, no palpitation and no syncope. He is not aware of any recurrent atrial fibrillation. MEDICATION: His medications at home include metformin 1 gram twice a day, hydralazine 25 mg 3 times a day, glipizide 10 mg twice a day, Onglyza, Xarelto 20 mg daily, omeprazole, lisinopril 40 mg daily, levothyroxine, insulin, gabapentin, Jardiance, Tikosyn 500 twice a day, diltiazem CD 240 mg daily, Plavix 75 mg daily, vitamin D, Coreg 6.25 mg twice a day, Lipitor 80 mg daily. REVIEW OF SYSTEMS: RESPIRATORY SYSTEM: He has no documented history of asthma, emphysema or bronchitis. GI SYSTEM: No recent GI bleeding. No peptic ulcer disease. SYSTEM: No dysuria or hematuria. NERVOUS SYSTEM: No history of stroke or seizure. Coronary risk factors remarkable for hypertension, hyperlipidemia, diabetes mellitus. PHYSICAL EXAMINATION: He is a 58-year-old male, alert, oriented, in no apparent distress. Blood pressure 127/80 with the heart rate in the 70s. HEAD: Normocephalic. EYES: Sclerae anicteric. NECK: Good carotid upstroke. No bruit, no jugular venous distention. LUNGS: Clear to auscultation. HEART: Regular rate and rhythm. S1, S2. No S3 with systolic murmur heard at the base, ejection type. No diastolic murmur. No rub. ABDOMEN: Soft, nontender. Positive bowel sounds. No organomegaly. EXTREMITIES: Trace edema with chronic stasis and dressing over right leg. LAB DATA: EKG revealed an atrial mechanism with atrial pacing and evidence of permanent pacemaker activity. Troponin less than 0.012 for 3 samples. Cholesterol 139, LDL of 75. BUN and creatinine 22 and 0.72. Potassium 4.6. Hemoglobin of 13.5. Chest x-ray revealed no acute changes. IMPRESSION: 1. Chest discomfort of unclear etiology in a patient with known history of coronary artery disease with no evidence of acute ischemic event. 2. History of permanent pacemaker implantation. 3. History of atrial fibrillation, status post ablation. 4. History of hypertension. 5. Hyperlipidemia. 6. Diabetes mellitus. RECOMMENDATION: I would recommend to obtain a myocardial perfusion imaging to assess his status and guide his treatment and depending on results of testing, further recommendation will be made. Those findings and recommendations were discussed with the patient and he is in full understanding and agreement. MMODL / IJN: [id number] /
[2018-05-15] MEDS ORDERED: ASPIRIN 81 MG PO SCH (09:00)
[2018-05-15] MEDS ORDERED: ASPIRIN 325 MG TAB PO SCH (09:00)
[2018-05-15] MEDS ORDERED: CLOPIDOGREL 75 MG TAB PO SCH (09:00)
[2018-05-15] MEDS: PANTOPRAZOLE 40 MG TABLET PO SCH (11:40)
[2018-05-15] MEDS: CARVEDILOL 6.25 MG TAB PO SCH (11:40)
[2018-05-15] MEDS: hydrALAZINE HCL 25 MG TAB PO SCH (11:40)
[2018-05-15] MEDS: glipiZIDE 10 MG TAB PO SCH (11:41)
[2018-05-15] MEDS: metFORMIN 500 MG TAB PO SCH (11:41)
[2018-05-15] MEDS: DOFETILIDE 500 MCG CAP PO SCH (11:41)
[2018-05-15 11:43] LABS: Glucose,Whole Blood 166 mg/dL (75-99)
[2018-05-15 11:49] VITALS: BP 159/94; PULSE 56; TEMP 97.8
--- NOTE | 2018-05-15 13:47 | NM ---
EXAMINATION TYPE: NM stress lexiscan cardiolite DATE OF EXAM: 05/15/2018 COMPARISON: Previous exam dated 10/11/2014 HISTORY: Chest pain TECHNIQUE: After the intravenous administration of 10.8 mCi Tc 99m Sestamibi - Cardiolite resting SP ECT images acquired 45 minutes post injection. The patient received 0.4mg Lexiscan, 24.9 mCi Tc 99m Sestamibi - Stress images obtained [address] injection FINDINGS: Review of stress and rest SPECT images demonstrates decreased relative pharmaceutical uptake along th e lateral wall of the left ventricle towards the base of the heart on stress as compared to rest imag es, similar finding suspected along the septum. Decreased uptake along the inferior wall on stress an d rest images suggest prior infarct. Gated analysis shows normal wall motion with an estimated left v entricular ejection fraction of 58 %. IMPRESSION: Suspect prior infarct along the inferior wall left ventricle, pharmacologically induced adina-infarct left ventricular myocardial ischemia
[2018-05-15 13:51] LABS: Hemoglobin A1C 7.7 % (4.0-6.0)
--- NOTE | 2018-05-15 13:56 | EST ---
EXERCISE STRESS DATE OF SERVICE: 05/15/2018 AGE: 58 SEX: Male HT: 77" WT: 273 pounds PROTOCOL: Lexiscan Cardiolite STAGE: DURATION OF EXERCISE: HEART RATE REST: 64 BLOOD PRESSURE REST: 127/75 MAXIMUM HEART RATE ACHIEVED: 71 MAXIMUM BLOOD PRESSURE: 127/75 85% MPHR: 100% MPHR: METS: INDICATIONS: Chest pain. CLINICAL INFORMATION: Baseline rhythm is sinus mechanism, rate of 64, pacemaker activity. Baseline blood pressure 127/75 mmHg. Patient received an injection of Lexiscan. Electrocardiograph monitoring revealed no evidence of diagnostic ischemic ST deviation. Cardiolite was injected per protocol. CONCLUSION: 1. Nondiagnostic electrocardiograph stress testing. 2. Nuclear images will be reported separately. MMODL / IJN: [id number] /
--- NOTE | 2018-05-15 15:23 | P.DS ---
Providers Date of admission: 05/14/18 18:14 Attending physician: Fabricio Becker Consults: 05/14/18 18:14 Consult Physician Urgent Consulting Provider: Scout Tse Consult Reason/Comments: cp Do you want consulting provider notified?: Yes Primary care physician: Bill Harris MD Hospital Course: Please refer to my HPI Plan - Discharge Summary Discharge Rx Participant: No New Discharge Prescriptions: No Action metFORMIN HCL 1,000 mg PO BID Dofetilide [Tikosyn] 500 mcg PO BID glipiZIDE [Glucotrol] 10 mg PO BID Insulin Glargine,Hum.rec.anlog [Lantus Solostar] 7 unit SQ HS Gabapentin [Neurontin] 300 mg PO HS Nitroglycerin Sl Tabs [Nitrostat] 0.4 mg SUBLINGUAL Q5M PRN #25 tab PRN Reason: Chest Pain Omeprazole 20 mg PO BID Diltiazem HCl [Diltiazem 24Hr ER] 240 mg PO DAILY Empagliflozin [Jardiance] 10 mg PO DAILY Atorvastatin [Lipitor] 80 mg PO HS Lisinopril 40 mg PO DAILY Fluticasone Nasal [place] [Flonase Nasal [place]] 1 spr EA NOSTRIL BID Levothyroxine Sodium [Synthroid] 200 mcg PO DAILY Saxagliptin HCl [Onglyza] 5 mg PO DAILY Urea 20% Cream 1 applic TOPICAL DAILY PRN PRN Reason: Dry Skin Rivaroxaban [Xarelto] 20 mg PO HS Cyanocobalamin (Vitamin B-12) [Vitamin B-12] 1,000 mcg PO DAILY Clopidogrel [Plavix] 75 mg PO DAILY #30 tab Carvedilol [Coreg] 6.25 mg PO BID-W/MEALS #30 tab hydrALAZINE HCL [Apresoline] 25 mg PO TID Methocarbamol [Robaxin] 500 mg PO HS Cholecalciferol [Vitamin D3] 1,000 unit PO HS Discharge Medication List Dofetilide [Tikosyn] 500 mcg PO BID 10/08/14 [History] metFORMIN HCL 1,000 mg PO BID 10/08/14 [History] glipiZIDE [Glucotrol] 10 mg PO BID 04/05/15 [History] Insulin Glargine,Hum.rec.anlog [Lantus Solostar] 7 unit SQ HS 04/06/15 [History] Gabapentin [Neurontin] 300 mg PO HS 04/28/15 [History] Nitroglycerin Sl Tabs [Nitrostat] 0.4 mg SUBLINGUAL Q5M PRN #25 tab 05/06/15 [Rx ] Omeprazole 20 mg PO BID 10/07/15 [History] Diltiazem HCl [Diltiazem 24Hr ER] 240 mg PO DAILY 04/10/16 [History] Atorvastatin [Lipitor] 80 mg PO HS 12/27/17 [History] Cyanocobalamin (Vitamin B-12) [Vitamin B-12] 1,000 mcg PO DAILY 12/27/17 [ History] Empagliflozin [Jardiance] 10 mg PO DAILY 12/27/17 [History] Fluticasone Nasal [place] [Flonase Nasal [place]] 1 spr EA NOSTRIL BID 12/27/17 [ History] Levothyroxine Sodium [Synthroid] 200 mcg PO DAILY 12/27/17 [History] Lisinopril 40 mg PO DAILY 12/27/17 [History] Rivaroxaban [Xarelto] 20 mg PO HS 12/27/17 [History] Saxagliptin HCl [Onglyza] 5 mg PO DAILY 12/27/17 [History] Urea 20% Cream 1 applic TOPICAL DAILY PRN 12/27/17 [History] Carvedilol [Coreg] 6.25 mg PO BID-W/MEALS #30 tab 12/29/17 [Rx] Clopidogrel [Plavix] 75 mg PO DAILY #30 tab 12/29/17 [Rx] Cholecalciferol [Vitamin D3] 1,000 unit PO HS 05/14/18 [History] Methocarbamol [Robaxin] 500 mg PO HS 05/14/18 [History] hydrALAZINE HCL [Apresoline] 25 mg PO TID 05/14/18 [History] Follow up Appointment(s)/Referral(s): Bill Harris MD [Primary Care Provider] - 3 Days Discharge Disposition: HOME SELF-CARE
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
== END 2018-05-15 16:40 | disposition home or self-care (01) ==
LOC: EC 16:58 → 1SOBS 18:14
PROVIDERS: ADMIT Hospitalist; ATTEND Hospitalist
DX: R07.89 Other chest pain (principal); R06.02 Shortness of breath; I25.10 Atherosclerotic heart disease of native coronary artery without angina pectoris; E78.5 Hyperlipidemia, unspecified; I10 Essential (primary) hypertension; M19.90 Unspecified osteoarthritis, unspecified site; G47.30 Sleep apnea, unspecified; I48.0 Paroxysmal atrial fibrillation; L97.919 Non-pressure chronic ulcer of unspecified part of right lower leg with unspecified severity; E11.622 Type 2 diabetes mellitus with other skin ulcer; Z99.89 Dependence on other enabling machines and devices; Z86.718 Personal history of other venous thrombosis and embolism; R60.0 Localized edema; I83.009 Varicose veins of unspecified lower extremity with ulcer of unspecified site; E89.0 Postprocedural hypothyroidism; E66.9 Obesity, unspecified; Z68.32 Body mass index [BMI] 32.0-32.9, adult; I87.8 Other specified disorders of veins; L98.9 Disorder of the skin and subcutaneous tissue, unspecified; Z85.850 Personal history of malignant neoplasm of thyroid; Z95.5 Presence of coronary angioplasty implant and graft; Z95.0 Presence of cardiac pacemaker; Z82.3 Family history of stroke; Z80.3 Family history of malignant neoplasm of breast; Z79.84 Long term (current) use of oral hypoglycemic drugs; Z79.890 Hormone replacement therapy; Z79.899 Other long term (current) drug therapy; Z79.01 Long term (current) use of anticoagulants; Z88.8 Allergy status to other drugs, medicaments and biological substances; Z91.018 Allergy to other foods; Z91.048 Other nonmedicinal substance allergy status; Z79.02 Long term (current) use of antithrombotics/antiplatelets; X50.0XXA Overexertion from strenuous movement or load, initial encounter
CPT/HCPCS: 96374; 99285; 36415; 93005; 93017; 83880; 80061; 80053; 82550 ×2; 82553 ×2; 83735; 84484 ×2; 85025; 85610; 85730; 83036; 71046; 78452; G0378 ×2; A9500; J2270; J2785

== ENCOUNTER 2018-08-27 09:58 | Inpatient (IN) | payer OTHER, MEDICARE ==
[2018-08-27] MEDS ORDERED: NITROGLYCERIN OINT 1 INCH/GM PACKET TOPICAL STA (10:24)
[2018-08-27] MEDS ORDERED: ASPIRIN 81 MG PO STA (10:24)
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
[2018-08-27 11:43] LABS: Basophils % (A) 1 %; Eosinophils # (A) 0.2 k/uL (0-0.7); Eosinophils % (A) 3 %; HCT 43.7 % (39.0-53.0); Hypochromasia Slight; Lymphocytes # (A) 0.8 k/uL (1.0-4.8); Lymphocytes % (A) 10 %; MCH 27.2 pg (25.0-35.0); MCHC 32.1 g/dL (31.0-37.0); MCV 84.7 fL (80.0-100.0); Mean Platelet Volume 7.1; Monocytes # (A) 0.3 k/uL (0-1.0); Monocytes % (A) 4 %; Neutrophils # (A) 6.4 k/uL (1.3-7.7); Neutrophils % (A) 82 %; Platelet Count 280 k/uL (150-450); RBC 5.16 m/uL (4.30-5.90); RDW 14.2 % (11.5-15.5); WBC 7.8 k/uL (3.8-10.6)
[2018-08-27 11:45] LABS: ALT 33 U/L (21-72); AST 17 U/L (17-59); Albumin 3.3 g/dL (3.5-5.0); Alkaline Phosphatase 77 U/L (38-126); Anion Gap 8 mmol/L; Blood Urea Nitrogen 23 mg/dL (9-20); Calcium 8.9 mg/dL (8.4-10.2); Carbon Dioxide 23 mmol/L (22-30); Chloride 113 mmol/L (98-107); Glucose 163 mg/dL (74-99); Magnesium 1.7 mg/dL (1.6-2.3); Potassium 4.3 mmol/L (3.5-5.1); Sodium 144 mmol/L (137-145); Total Bilirubin 0.6 mg/dL (0.2-1.3); Total Protein 5.8 g/dL (6.3-8.2)
[2018-08-27 11:50] LABS: INR 1.1 (<1.2); Partial Thromboplastin Time 27.5 sec (22.0-30.0); Prothrombin Time 11.2 sec (9.0-12.0)
--- NOTE | 2018-08-27 11:57 | XR ---
EXAMINATION TYPE: XR chest 2V DATE OF EXAM: 08/27/2018 COMPARISON: Prior chest x-ray 05/14/2018 HISTORY: Chest pain, shortness of breath TECHNIQUE: Frontal and lateral views of the chest are obtained. FINDINGS: There is no focal air space opacity, pleural effusion, or pneumothorax seen. The cardiac silhouette size is within normal limits. Probable granuloma present at the right costophrenic angle level. Pacemaker is present with leads in the right atrium and ventricle. The osseous structures are intact. IMPRESSION: No acute cardiopulmonary process.
[2018-08-27] MEDS ORDERED: NITROGLYCERIN SL TABS 0.4 MG TAB SUBLINGUAL PRN (12:16)
[2018-08-27 14:19] VITALS: BMI 33.7
[2018-08-27] MEDS ORDERED: NALOXONE 0.4 MG/ML 1 ML VIAL IV PRN (14:44)
[2018-08-27] MEDS ORDERED: MORPHINE SULFATE 2 MG/ML SYRINGE IV PRN (14:44)
[2018-08-27] MEDS ORDERED: ACETAMINOPHEN TAB 325 MG TAB PO PRN (14:44)
[2018-08-27] MEDS ORDERED: HYDROcodone/APAP 5-325MG 1 EACH TAB PO PRN (14:44)
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
[2018-08-27 15:45] LABS: Glucose,Whole Blood 148 mg/dL (75-99)
[2018-08-27] MEDS ORDERED: DOFETILIDE 500 MCG CAP PO STA (16:04)
[2018-08-27] MEDS ORDERED: INSULIN ASPART (NovoLOG) 100 UNIT/ML VIAL SQ SCH (17:30)
[2018-08-27] MEDS: CARVEDILOL 12.5 MG TAB PO SCH (17:40)
[2018-08-27] MEDS: NITROGLYCERIN OINT 1 INCH/GM PACKET TOPICAL SCH (17:41)
[2018-08-27 20:38] LABS: Glucose,Whole Blood 169 mg/dL (75-99)
[2018-08-27] MEDS: LISINOPRIL 20 MG TAB PO SCH (20:48)
[2018-08-27] MEDS: hydrALAZINE HCL 25 MG TAB PO SCH (20:48)
[2018-08-27] MEDS: INSULIN ASPART (NovoLOG) 100 UNIT/ML VIAL SQ SCH (20:51)
[2018-08-27] MEDS ORDERED: DOFETILIDE 500 MCG CAP PO SCH (21:00)
[2018-08-27] MEDS ORDERED: ATORVASTATIN 80 MG TAB PO SCH (21:00)
[2018-08-27] MEDS ORDERED: RIVAROXABAN 20 MG TAB PO SCH (21:00)
[2018-08-27] MEDS ORDERED: METHOCARBAMOL 500 MG TAB PO SCH (21:30)
[2018-08-27] MEDS ORDERED: GABAPENTIN 300 MG CAP PO SCH (21:30)
[2018-08-28] MEDS ORDERED: DILTIAZEM DRIP BOLUS FROM BAG 1 MG SOLN IV ONE (03:32)
[2018-08-28] MEDS ORDERED: DILTIAZEM 125 MG in SODIUM CHLORIDE 0.9% 100 ML IV SCH (04:00)
[2018-08-28 04:16] LABS: Basophils % (A) 1 %; Eosinophils # (A) 0.2 k/uL (0-0.7); Eosinophils % (A) 3 %; HGB 13.5 gm/dL (13.0-17.5); Lymphocytes # (A) 0.6 k/uL (1.0-4.8); Lymphocytes % (A) 8 %; MCH 26.6 pg (25.0-35.0); MCHC 31.4 g/dL (31.0-37.0); MCV 84.5 fL (80.0-100.0); Mean Platelet Volume 7.5; Monocytes # (A) 0.4 k/uL (0-1.0); Monocytes % (A) 5 %; Neutrophils # (A) 6.1 k/uL (1.3-7.7); Neutrophils % (A) 82 %; Platelet Count 225 k/uL (150-450); RBC 5.09 m/uL (4.30-5.90); RDW 14.6 % (11.5-15.5); WBC 7.5 k/uL (3.8-10.6)
[2018-08-28 04:28] LABS: Anion Gap 9 mmol/L; Blood Urea Nitrogen 22 mg/dL (9-20); Calcium 9.3 mg/dL (8.4-10.2); Carbon Dioxide 22 mmol/L (22-30); Chloride 111 mmol/L (98-107); Cholesterol 110 mg/dL (<200); Glucose 156 mg/dL (74-99); HDL Cholesterol 23 mg/dL (40-60); LDL Cholesterol,Calculated 71 mg/dL (0-99); Magnesium 1.9 mg/dL (1.6-2.3); Potassium 4.1 mmol/L (3.5-5.1); Sodium 142 mmol/L (137-145); Triglycerides 81 mg/dL (<150)
[2018-08-28] MEDS: NITROGLYCERIN OINT 1 INCH/GM PACKET TOPICAL SCH ×3 (05:49→12:10)
[2018-08-28] MEDS ORDERED: DOFETILIDE 500 MCG CAP PO SCH (06:00)
[2018-08-28] MEDS ORDERED: LEVOTHYROXINE 100 MCG TAB PO SCH (06:30)
[2018-08-28 07:19] LABS: Glucose,Whole Blood 173 mg/dL (75-99)
[2018-08-28] MEDS: LISINOPRIL 20 MG TAB PO SCH (08:43)
[2018-08-28] MEDS: hydrALAZINE HCL 25 MG TAB PO SCH (08:44)
[2018-08-28] MEDS: CARVEDILOL 12.5 MG TAB PO SCH (08:44)
[2018-08-28] MEDS: INSULIN ASPART (NovoLOG) 100 UNIT/ML VIAL SQ SCH ×2 (08:44→12:13)
[2018-08-28] MEDS ORDERED: CLOPIDOGREL 75 MG TAB PO SCH (09:00)
[2018-08-28] MEDS ORDERED: ENOXAPARIN 40 MG/0.4 ML SYRINGE SQ SCH (09:00)
[2018-08-28] MEDS ORDERED: ASPIRIN 325 MG TAB PO SCH (09:00)
[2018-08-28] MEDS ORDERED: DILTIAZEM CD 240 MG CAP.ER.24H PO SCH (09:00)
[2018-08-28] MEDS ORDERED: PANTOPRAZOLE 40 MG TABLET PO SCH (09:15)
[2018-08-28] MEDS ORDERED: HYDROcodone/APAP 10-325MG 1 EACH TAB PO PRN (09:21)
[2018-08-28 10:04] VITALS: TEMP 97.6
[2018-08-28 10:05] VITALS: BP 111/97; PULSE 104; RESP 20
--- NOTE | 2018-08-28 10:39 | P.PN ---
Subjective Progress Note Date: 08/28/18 Principal diagnosis: Atrial fibrillation with RVR Patient was seen and examined. No acute events overnight. Patient reports no chest pain since yesterday. He does complain of fatigue and diarrhea, liquid this morning. He denies any nausea or vomiting. He denies any fever or chills. He denies any dizziness, shortness of breath or palpitations. Also complains of dysuria and incomplete emptying her bladder. Objective - Vital Signs Vital signs: Vital Signs Temp 97.6 F 08/28/18 08:00 Pulse 104 H 08/28/18 10:04 Resp 20 08/28/18 10:04 BP 111/97 08/28/18 10:04 Pulse Ox 95 08/28/18 04:00 Intake & Output 08/27/18 08/28/18 08/28/18 18:59 06:59 18:59 Intake Total 24 Output Total 225 700 Balance -225 -676 Weight 129.274 kg 117.3 kg Intake: Intake, IV Titration 24 Amount Diltiazem 125 mg In 24 Sodium Chloride 0.9% 100 ml @ 10 MG/HR 10 mls/hr IV .[id number] [facility] Rx#: [id number] Output: Urine 225 700 Other: Voiding Method Urinal Urinal # Voids 1 # Bowel Movements 2 - Exam General: [non toxic], [no distress], [appears at stated age] Derm: [warm], [dry] Head: [atraumatic], [normocephalic], [symmetric] Eyes: [EOMI], [no lid lag], [anicteric sclera] Mouth: [no lip lesion], [mucus membranes moist] Cardiovascular: [S1S2 reg], [irregularly irregular], [positive DP pulse bilateral], Lungs: [CTA bilateral], [no rhonchi, no rales] , [no accessory muscle use] Abdominal: [soft], [ nontender to palpation], [no guarding], [no appreciable organomegaly] Ext: [no gross muscle atrophy], [no edema], [no contractures] Neuro: [no focal neuro deficits] Psych: [Alert], [oriented], [appropriate affect] - Labs CBC & Chem 7: 08/28/18 04:03 08/28/18 04:03 Labs: Abnormal Lab Results - Last 24 Hours (Table) 03/20/19 03/20/19 03/20/19 Range/Units 10:19 10:19 15:33 Lymphocytes # 0.8 L (1.0-4.8) k/uL Chloride 113 H (98-107) mmol/L BUN 23 H (9-20) mg/dL Creatinine 0.51 L (0.66-1.25) mg/dL Glucose 163 H (74-99) mg/dL POC Glucose (mg/dL) 148 H (75-99) mg/dL Total Protein 5.8 L (6.3-8.2) g/dL Albumin 3.3 L (3.5-5.0) g/dL HDL Cholesterol (40-60) mg/dL 08/27/18 08/28/18 08/28/18 Range/Units 20:26 04:03 04:03 Lymphocytes # 0.6 L (1.0-4.8) k/uL Chloride 111 H (98-107) mmol/L BUN 22 H (9-20) mg/dL Creatinine 0.52 L (0.66-1.25) mg/dL Glucose 156 H (74-99) mg/dL POC Glucose (mg/dL) 169 H (75-99) mg/dL Total Protein (6.3-8.2) g/dL Albumin (3.5-5.0) g/dL HDL Cholesterol 23 L (40-60) mg/dL 08/28/18 Range/Units 07:08 Lymphocytes # (1.0-4.8) k/uL Chloride (98-107) mmol/L BUN (9-20) mg/dL Creatinine (0.66-1.25) mg/dL Glucose (74-99) mg/dL POC Glucose (mg/dL) 173 H (75-99) mg/dL Total Protein (6.3-8.2) g/dL Albumin (3.5-5.0) g/dL HDL Cholesterol (40-60) mg/dL Assessment and Plan Assessment: Assessment and Plan 1. Chest pain 2. Diarrhea 3. Dysuria 4. Hypertension 5. Diabetes mellitus 6. Atrial fibrillation with RVR 7. History of thyroid cancer 1. Concerns for unstable angina given history by likely demand from rapid ventricular rate. Given nitroglycerin ED. Troponin less than 0.012 3, EKG showing paced rhythm with atrial fibrillation. Start aspirin and Lipitor. Start Plavix. Start carvedilol. Morphine or Tylenol or nitro as needed for pain management. Telemetry monitoring. Discussed with nursing, plan is to monitor patient into the afternoon, likely discharge if heart rate controlled, to follow-up with cardiology at the [facility]. Will follow cardiology recommendations. 2. Only this morning. Rule out C. diff. 3. Started this morning. Follow UA, reflex to urine culture. 4. BP 111/97. Continue Coreg, diltiazem, hydralazine, lisinopril. Monitor vitals, adjust medications as necessary. 5. [id number] glucose 173. Insulin sliding scale. Hypoglycemic precautions. Regular Accu-Cheks. 6. Rate control with Coreg, diltiazem and Dofetilide. Anti-coagulation with Xarelto. Telemetry monitoring. Keep potassium greater than 4 magnesium greater than 2. Follow cardiology recommendations. 7. Status post thyroidectomy. Will need to follow-up oncology in the outpatient setting. Patient admitted for chest pain, ACS ruled out. Continue monitoring heart rate into the afternoon. Follow cardiology recommendations. Likely discharge today.
--- NOTE | 2018-08-28 10:40 | CONS ---
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 He had a stenting of a circumflex coronary that came from right coronary cusp in December of [address] Dozier and since then has followed up at the [facility] in the [facility]. He presents here with complaints of chest pain. The quality of the pain seems atypical. He had recurrent pains, sharp in nature and then took 3 nitroglycerin without relief. His troponins are normal. He is resting comfortably without symptoms, but however he remains in atrial fibrillation. The rate is variable. At the time of my evaluation, he is resting comfortably without symptoms. His is in atrial fibrillation, rate is about 116 beats per minute, irregular. He has history of type 2 diabetes, hypertension, hyperlipidemia as well. His pain seems atypical. Troponins are normal. He is resting comfortably. RELEVANT PAST MEDICAL HISTORY: 1. CAD with multivessel PCI. 2. Atrial fibrillation with multiple ablations. 3. Hypertension. 4. Hyperlipidemia. 5. Obstructive sleep apnea on CPAP. This patient underwent stenting of ectopic circumflex coming from right cusp by Dr. Dozier. At that time, the stents in the LAD and RCA were widely patent. MEDICATIONS: Medications at home include Tikosyn 5 mg b.i.d., metformin 1000 mg b.i.d., Glucotrol 10 mg b.i.d., Lantus insulin, diltiazem long-acting 240 mg daily, atorvastatin 80 mg daily, vitamin supplements. He also takes Xarelto 20 mg daily, levothyroxine 200 mcg daily, Plavix 75 mg daily, Coreg 12.5 mg b.i.d., lisinopril 40 mg daily, hydralazine 25 mg b.i.d. At the time of my evaluation, he is comfortable, resting, denies any chest pain or shortness of breath. PHYSICAL EXAMINATION: On examination, his blood pressure is 128/70, pulse rate is about 116 per minute. HEENT unremarkable. Fundus was not examined by me. Neck is supple. There is JVD of 1 cm. No carotid bruit. Heart exam reveals S1, S2 with irregular rate and rhythm, short systolic murmur. Lungs are clear. Abdomen is soft. Lower extremities reveal diminished pulses. Central nervous system is normal. EKG revealed what seems to be an atrial fib rapid ventricular rate with the right bundle and then also he had some paced atrial paced beats and also a sinus mechanism and nonspecific ST-T changes were noted. LABORATORY DATA: Laboratory data revealed the troponins are all unremarkable. IMPRESSION: 1. Persistent atrial fibrillation, status post multiple ablations. 2. Permanent pacemaker being followed at [facility]. 3. Hypertension. 4. Hyperlipidemia. 5. History of coronary artery disease with multivessel PCI. 6. History of sleep apnea syndrome. RECOMMENDATION: I am recommending that we resume all his medications including Tikosyn. His QT interval is okay. We will increase activity and if he has no further symptoms, he can be discharged and follow up at [facility]. I discussed my thoughts in detail with the patient and . Thank you very much for the consult. SANCHEZ / YUNIELN: [id number] /
[2018-08-28 10:42] LABS: Creatine Kinase 33 U/L (55-170)
[2018-08-28 10:55] LABS: Creatine Kinase MB 0.7 ng/mL (0.0-2.4); Troponin I <0.012 ng/mL (0.000-0.034)
[2018-08-28 12:07] LABS: Glucose,Whole Blood 202 mg/dL (75-99)
[2018-08-28 13:17] LABS: Appearance,Urine Clear (Clear); Bilirubin,Urine Negative (Negative); Blood,Urine Negative (Negative); Color,Urine Yellow; Glucose,Urine (UA) 4+ (Negative); Ketones,Urine 1+ (Negative); Leukocyte Esterase,Urine Negative (Negative); Nitrite,Urine Negative (Negative); PH, Urine 5.5 (5.0-8.0); Protein,Urine Negative (Negative); Specific Gravity,Urine 1.036 (1.001-1.035); Urobilinogen,Urine <2.0 mg/dL (<2.0)
== END 2018-08-28 15:41 | disposition home or self-care (01) | DRG 313 ==
LOC: EC 09:58 → 3SCARD 12:16 → 2SICU 15:11
PROVIDERS: ADMIT Family Medicine; ATTEND Family Medicine
DX: R07.9 Chest pain, unspecified (principal); I25.110 Atherosclerotic heart disease of native coronary artery with unstable angina pectoris; I48.1 Persistent atrial fibrillation; E11.9 Type 2 diabetes mellitus without complications; E66.9 Obesity, unspecified; Z68.30 Body mass index [BMI] 30.0-30.9, adult; E78.5 Hyperlipidemia, unspecified; E89.0 Postprocedural hypothyroidism; G25.81 Restless legs syndrome; G47.33 Obstructive sleep apnea (adult) (pediatric); H40.9 Unspecified glaucoma; I10 Essential (primary) hypertension; I25.2 Old myocardial infarction; Z79.01 Long term (current) use of anticoagulants; Z79.02 Long term (current) use of antithrombotics/antiplatelets; Z79.84 Long term (current) use of oral hypoglycemic drugs; Z79.890 Hormone replacement therapy; Z79.899 Other long term (current) drug therapy; Z80.3 Family history of malignant neoplasm of breast; Z82.49 Family history of ischemic heart disease and other diseases of the circulatory system; Z83.3 Family history of diabetes mellitus; Z85.850 Personal history of malignant neoplasm of thyroid; Z95.0 Presence of cardiac pacemaker; Z95.5 Presence of coronary angioplasty implant and graft; Z98.42 Cataract extraction status, left eye; Z98.41 Cataract extraction status, right eye; Z96.1 Presence of intraocular lens; Z88.5 Allergy status to narcotic agent; Z88.8 Allergy status to other drugs, medicaments and biological substances; Z91.018 Allergy to other foods; R19.7 Diarrhea, unspecified; R30.0 Dysuria
CPT/HCPCS: 36415; 71046; 80048; 80053; 80061; 81003; 82550; 82553; 83630; 83735; 84484; 85025; 85610; 85730; 87045; 87046; 87177; 87207; 87209; 87324; 93005; 99285